=== PATIENT | female | born 1950 | race Caucasian/White ===

== ENCOUNTER 2020-10-02 02:57 | Inpatient (IN) ==
--- NOTE | 2020-10-02 02:44 | Emergency Department Note ---
History of Present Illness General Chief complaint: Heart Alert Stated complaint: CARDIAC/HEART ALERT Source: patient and EMS Mode of arrival: EMS History of Present Illness Provider complaint: Chest pain Onset (ago): hour(s) 2 Location: chest Radiation: neck and extremity Severity: severe Pain Consistency: + constant Maximum Pain Intensity: 10 Quality: + constant Associated symptoms: + diaphoresis and + shortness of breath This is a 70-year-old female who presents via EMS due to acute onset of chest pain at 00 30 this morning. 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 No prior similar episodes. Pain radiates into the left upper extremity and neck. No radiation into the back. Patient began to feel short of breath with this episode and was also nauseated. EMS reported initially patient was very hypertensive, pale and diaphoretic. Her initial room air sats were 82% however on a nonrebreather she came up into the mid 90s. Patient did not appear to have any increased work of breathing to them at that time. Patient did take 4 baby aspirin prior to their arrival. She was given a total of 2 doses of morphine prehospital. Patient denies any prior cardiac history. Does have history of diabetes, asthma, and hypertension. No prior history of tobacco abuse. No recent illness or fevers. No known exposure to coronavirus. Medical command given for patient prior to arrival in heart alert called by myself. EKG with ST elevation noted inferiorly as well as in V5 and V6 with reciprocal ST depression. Pt seen during a time of high acuity and national emergency pandemic while wearing PPE. Home Medications Medication Instructions Recorded Confirmed Type Lactobacillus acidophilus 10,000 mmu cells PO DAILY 10/02/20 10/02/20 History [Probiotic] albuterol sulfate [ProAir HFA] 2 puff INHALATION QID 10/02/20 10/02/20 History bupropion HCl [Wellbutrin XL] 450 mg PO QAM 10/02/20 10/02/20 History cholecalciferol (vitamin D3) 50 mcg PO DAILY 10/02/20 10/02/20 History [Vitamin D3] coenzyme Q10 [CoQ-10] 100 mg PO DAILY 10/02/20 10/02/20 History cyclobenzaprine [Flexeril] 10 mg PO .DAILY @ 1900 10/02/20 10/02/20 History diclofenac sodium [Voltaren] 150 mg PO DAILY 10/02/20 10/02/20 History dicyclomine [Bentyl] 20 mg PO QID PRN 10/02/20 10/02/20 History flunisolide 2 spray INTRANASAL DAILY 10/02/20 10/02/20 History gabapentin 100 mg PO .DAILY @ 1900 10/02/20 10/02/20 History hydrocodone-acetaminophen 1 tab PO Q4H PRN 10/02/20 10/02/20 History ipratropium-albuterol [DuoNeb] 3 ml INHALATION QID 10/02/20 10/02/20 History levocetirizine 5 mg PO PM 10/02/20 10/02/20 History levothyroxine See Rx Instructions .ROUTE .COMPLEX 10/02/20 10/02/20 History losartan 100 mg PO DAILY 10/02/20 10/02/20 History melatonin 5 mg PO HS PRN 10/02/20 10/02/20 History metformin 500 mg PO BID 10/02/20 10/02/20 History milk thistle 500 mg PO DAILY 10/02/20 10/02/20 History mometasone-formoterol [Dulera] 2 puff INHALATION BID 10/02/20 10/02/20 History montelukast [Singulair] 10 mg PO DAILY 10/02/20 10/02/20 History nystatin 1 applic TOPICAL TID PRN 10/02/20 10/02/20 History ondansetron HCl [Zofran] 4 - 8 mg PO TID PRN 10/02/20 10/02/20 History rosuvastatin [Crestor] 10 mg PO HS 10/02/20 10/02/20 History triamcinolone acetonide 1 applic TOPICAL TID PRN 10/02/20 10/02/20 History [Aristocort] vitamin B comp and C no.3 [B 1 cap PO DAILY 10/02/20 10/02/20 History Complex Plus Vitamin C] Allergies Allergy/AdvReac Type Severity Reaction Status Date / Time lactose Allergy Unknown diarrhea Verified 10/02/20 03:01 latex Allergy Unknown RASH Verified 10/02/20 03:01 propoxyphene Allergy Unknown DISORIENTED Verified 10/02/20 03:01 hydrochlorothiazide AdvReac Intermediate DIZZINESS Verified 10/02/20 03:01 triamterene AdvReac Intermediate DIZZINESS Verified 10/02/20 03:01 lisinopril AdvReac Unknown COUGH Verified 10/02/20 03:01 Past Med/Surg History Medical History (Updated 10/02/20 @ 06:39 by HETAL Parker) Asthma Diabetes mellitus Dyslipidemia Hypothyroidism Social History Smoking Status: Never smoker Second Hand Exposure: No; Do You Dip or Chew Tobacco: No; Hx Substance Use: Yes (Medical Marijuana for chronic pain) Preferred Language: Belizean Communication Ability: Effective Pulling Unit Operator Required: No Beliefs That Will Affect Care: None Current Living Situation: Alone Other Information That Helps Us Care for You: No Feels Safe at Home: Yes Safety Concerns: Feels Safe At This Time Assistive Devices: Cane and Glasses Review of Systems See HPI for pertinent positives & negatives. and A total of 10 systems reviewed and were otherwise negative Physical Exam Vital Signs Vital Signs - 24 hr 10/02/20 03:00 10/02/20 03:03 10/02/20 03:08 Temperature 36.9 C Temperature Source Oral Pulse Rate 108 H 111 H Pulse Rhythm Regular Pulse Strength Normal Respiratory Rate 34 H 30 H Respiratory Effort / Characteristics Spontaneous Labored Short of Breath Non-Labored Respiratory Depth Normal Normal Respiratory Pattern Tachypnea Blood Pressure 180/151 H 194/161 H Blood Pressure Mean 160 171 Pulse Oximetry 93 94 Oxygen Delivery Method BiPAP Fraction of Inspired Oxygen 100 Sepsis Recent Fever Within 48 Hours No Sepsis New/Unexplained Change in Mental Status N/A Sepsis Action Taken by Nursing No Action Required 10/02/20 03:14 Temperature Temperature Source Pulse Rate 116 H Pulse Rhythm Pulse Strength Respiratory Rate 22 Respiratory Effort / Characteristics Respiratory Depth Respiratory Pattern Blood Pressure 194/161 H Blood Pressure Mean Pulse Oximetry 98 Oxygen Delivery Method BiPAP Fraction of Inspired Oxygen Sepsis Recent Fever Within 48 Hours Sepsis New/Unexplained Change in Mental Status Sepsis Action Taken by Nursing GENERAL: alert, uncomfortable appearing, well nourished, mild distress, non- toxic, obese, audible rales EYE EXAM: normal conjunctiva, PERRL and EOM's grossly intact OROPHARYNX: no exudate, no erythema, lips, buccal mucosa, and tongue normal and mucous membranes are moist NECK: supple, no nuchal rigidity, no adenopathy, non-tender LUNGS: Normal chest wall mechanics, bilateral rales throughout, no wheezes, increased WOB HEART: no murmurs, S1 normal and S2 normal, sinus tachycardia on telemetry occasional PAC ABDOMEN: abdomen soft, non-tender, normo-active bowel sounds, no masses, no rebound or guarding. BACK: Back is symmetrical on inspection and there is no deformity, no midline tenderness, no CVA tenderness. SKIN: no rashes and no bruising UPPER EXTREMITIES: upper extremities are grossly normal. FROM, nml pulses b/l. LOWER EXTREMITIES: Trace bilateral pitting edema. FROM, nml pulses b/l. NEURO EXAM: Normal sensorium, cranial nerves II-XII grossly intact, normal speech, no gross weakness of arms, no gross weakness of legs. Gross sensation intact. Course Course 0303: Pt placed on BiPAP by RT after her sats dropped to 78% on room air during the transition from EMS to ER stretcher. 0305: Dr. Roman at bedside. Brilinta given and nitro drip being started. 0313: Pt appears improved on Bipap. Improved sats and decreased WOB. Administered Medications Magnesium Sulfate/Dextrose (Magnesium Sulfate / D5w) 1 gm in 100 mls @ 50 mls/hr IV ONE ONE Stop: 10/02/20 07:36 Last Admin: 10/02/20 06:33 Dose: 50 mls/hr Documented by: [id number] Nitroglycerin/Dextrose (Nitroglycerin/D5w 100 Mcg/Ml) 250 mls @ 3 mls/hr IV .Q24H [facility]; Protocol Stop: 11/01/20 06:14 Last Admin: 10/02/20 06:37 Dose: 10 mcg/min, 6 mls/hr Documented by: [id number] Cosigned by: [id number] Insulin Aspart (Insulin Aspart 100 Units/Ml 3 Ml Pen) 0 units SC ACHS [facility] Stop: 11/01/20 06:29 Last Admin: 10/02/20 06:34 Dose: 3 units Documented by: [id number] Cosigned by: [id number] Levothyroxine Sodium (Levothyroxine Sodium 50 Mcg Tablet) 50 mcg PO SuWe@[id number] [facility] Stop: 11/01/20 06:29 Last Admin: 10/02/20 06:36 Dose: 50 mcg Documented by: [id number] Discontinued Medications Fentanyl Citrate (Fentanyl Citrate 100 Mcg/2 Ml Vial) Confirm Administered Dose 100 mcg .ROUTE .STK-MED ONE Stop: 10/02/20 02:56 Last Increment: 10/02/20 04:22 Dose: 50 mcg Documented by: [id number] Furosemide (Furosemide 40 Mg/4 Ml Vial) Confirm Administered Dose 40 mg IV .STK- MED ONE Stop: 10/02/20 04:27 Last Admin: 10/02/20 05:49 Dose: Not Given Documented by: [id number] Heparin Sodium (Porcine) (Heparin (Porcine) 1000 Unit/Ml 10 Ml (Car Repair Supervisor Use Only)) Confirm Administered Dose 10,000 units .ROUTE .STK-MED ONE Stop: 10/02/20 02:56 Last Admin: 10/02/20 04:21 Dose: 18,000 units Documented by: [id number] Heparin Sodium/Sodium Chloride (Heparin In Nss Infusion 1000 Unit/500 Ml (2 U/Ml) Bag) Confirm Administered Dose 3,000 units IV .STK-MED ONE Stop: 10/02/20 02:57 Last Admin: 10/02/20 04:16 Dose: 3,000 units Documented by: [id number] Nitroglycerin/Dextrose (Nitroglycerin/D5w 100 Mcg/Ml) 250 mls @ 3 mls/hr IV .Q24H [facility] Stop: 11/01/20 03:29 Last Admin: 10/02/20 04:17 Dose: 5 mcg/min, 3 mls/hr Documented by: [id number] Cosigned by: [id number] Midazolam HCl (Midazolam Hcl 1 Mg/Ml 2ml Vial) Confirm Administered Dose 2 mg .ROUTE .STK-MED ONE Stop: 10/02/20 02:56 Last Admin: 10/02/20 04:16 Dose: 2 mg Documented by: [id number] Miscellaneous (Stat Iv Infusion Titration Per Protocol) 1 ea N/A NOW STA Stop: 10/02/20 03:24 Last Admin: 10/02/20 05:53 Dose: Not Given Documented by: [id number] Nicardipine HCl (Nicardipine Hcl Inj 2.5 Mg/Ml 10 Ml Amp) Confirm Administered Dose 25 mg .ROUTE .STK-MED ONE Stop: 10/02/20 02:56 Last Admin: 10/02/20 04:16 Dose: 25 mg Documented by: [id number] Nitroglycerin/Dextrose (Nitroglycerin/D5w 100 Mcg/Ml Btl) Confirm Administered Dose 25 mg .ROUTE .STK-MED ONE Stop: 10/02/20 02:56 Last Admin: 10/02/20 03:12 Dose: 20 mcg Documented by: [id number] Cosigned by: [id number] Nitroglycerin/Dextrose (Nitroglycerin/D5w 100mcg/Ml 20ml Syr) Confirm Administered Dose 2,000 mcg .ROUTE .STK-MED ONE Stop: 10/02/20 02:57 Last Admin: 10/02/20 04:17 Dose: 2,000 mcg Documented by: [id number] Ticagrelor (Ticagrelor 90 Mg Tab) 180 mg PO ONE ONE Stop: 10/02/20 02:50 Last Admin: 10/02/20 03:05 Dose: 180 mg Documented by: [id number] Medical Decision Making Differential Diagnosis Differential diagnoses includes but is not limited to acute coronary syndrome, myocardial infarction, pericarditis, pulmonary embolus, aortic dissection, pneumonia, pneumothorax, musculoskeletal, shingles, esophageal. Medical Records Attestation: I reviewed the patient's medical records. Home Medications Current Medication List: was personally reviewed by me Laboratory Data Attestation: I reviewed the patient's lab results. Result diagrams: 10/02/20 03:03 10/02/20 03:03 Lab Results 10/02/20 10/02/20 10/02/20 Range/Units 03:03 03:03 03:03 WBC 16.59 H (4.8-10.8) K/uL RBC 5.55 H (4.2-5.4) M/uL Hgb 15.6 (12.0-16.0) g/dL Hct 48.0 H (37-47) % MCV 86.5 (80-100) fL MCH 28.1 (25-34) pg MCHC 32.5 (32-36) g/dL RDW Std Deviation 44.4 (36.4-46.3) fL RDW Coeff of Ade 14.1 (11.5-14.5) % Plt Count 297 (130-400) K/uL MPV 11.3 H (7.4-10.4) fL Immature Gran % (Auto) 0.4 % Neut % (Auto) 72.0 % Lymph % (Auto) 22.7 % Bee % (Auto) 3.7 % Eos % (Auto) 1.0 % Baso % (Auto) 0.2 % Neut # (Auto) 11.95 H (1.4-6.5) K/uL Lymph # (Auto) 3.76 H (1.2-3.4) K/uL Bee # (Auto) 0.62 H (0.11-0.59) K/uL Eos # (Auto) 0.16 (0-0.5) K/uL Baso # (Auto) 0.04 (0-0.2) K/uL Immature Gran # (Auto) 0.06 H (0.00-0.02) K/uL PT 11.1 (9.0-12.0) Seconds INR 1.1 (0.9-1.1) APTT 20.9 L (21.0-31.0) Seconds PTT Ratio 0.7 Activ Coag Time Kaolin (94-140) SECONDS Sodium 140 (136-145) mmol/L Potassium 4.0 (3.5-5.1) mmol/L Chloride 112 H (98-107) mmol/L Carbon Dioxide 22 (21-32) mmol/L Anion Gap 6.0 (3-11) BUN 17 (7-18) mg/dl Creatinine 1.29 H (0.6-1.2) mg/dl Est Cr Clr Drug Dosing 53.8 ml/min Est GFR ( Amer) 48.9 Est GFR (Non-Af Amer) 42.2 BUN/Creatinine Ratio 13.0 (10-20) Glucose 267 H (70-99) mg/dl Calcium 8.5 (8.5-10.1) mg/dl Magnesium 1.8 (1.8-2.4) mg/dl Total Bilirubin 0.3 (0.2-1) mg/dl AST 30 (15-37) U/L ALT 30 (12-78) U/L Alkaline Phosphatase 85 (45-117) U/L Total Creatine Kinase 204 H (26-192) U/L CK-MB (CK-2) 19.3 H (0.5-3.6) ng/ml CK/CKMB % Calc 9.5 H (0-3.0) Troponin I 0.848 H* (0-0.045) ng/ml NT-Pro-B Natriuret Pep 468 (0-900) pg/ml Total Protein 6.8 (6.4-8.2) gm/dl Albumin 3.3 L (3.4-5.0) gm/dl Globulin 3.5 (2.5-4.0) gm/dl Albumin/Globulin Ratio 0.9 (0.9-2) Triglycerides 295 H (0-150) mg/dl Cholesterol 217 H (0-200) mg/dl LDL Cholesterol, Calc 108 mg/dl VLDL Cholesterol, Calc 59 mg/dl HDL Cholesterol 50 mg/dl Cholesterol/HDL Ratio 4 Lipase 100 (73-393) U/L TSH 2.940 (0.300-4.500) uIu/ml 10/02/20 10/02/20 Range/Units 03:49 04:06 WBC (4.8-10.8) K/uL RBC (4.2-5.4) M/uL Hgb (12.0-16.0) g/dL Hct (37-47) % MCV (80-100) fL MCH (25-34) pg MCHC (32-36) g/dL RDW Std Deviation (36.4-46.3) fL RDW Coeff of Ade (11.5-14.5) % Plt Count (130-400) K/uL MPV (7.4-10.4) fL Immature Gran % (Auto) % Neut % (Auto) % Lymph % (Auto) % Bee % (Auto) % Eos % (Auto) % Baso % (Auto) % Neut # (Auto) (1.4-6.5) K/uL Lymph # (Auto) (1.2-3.4) K/uL Bee # (Auto) (0.11-0.59) K/uL Eos # (Auto) (0-0.5) K/uL Baso # (Auto) (0-0.2) K/uL Immature Gran # (Auto) (0.00-0.02) K/uL PT (9.0-12.0) Seconds INR (0.9-1.1) APTT (21.0-31.0) Seconds PTT Ratio Activ Coag Time Kaolin 219 H 230 H (94-140) SECONDS Sodium (136-145) mmol/L Potassium (3.5-5.1) mmol/L Chloride (98-107) mmol/L Carbon Dioxide (21-32) mmol/L Anion Gap (3-11) BUN (7-18) mg/dl Creatinine (0.6-1.2) mg/dl Est Cr Clr Drug Dosing ml/min Est GFR ( Amer) Est GFR (Non-Af Amer) BUN/Creatinine Ratio (10-20) Glucose (70-99) mg/dl Calcium (8.5-10.1) mg/dl Magnesium (1.8-2.4) mg/dl Total Bilirubin (0.2-1) mg/dl AST (15-37) U/L ALT (12-78) U/L Alkaline Phosphatase (45-117) U/L Total Creatine Kinase (26-192) U/L CK-MB (CK-2) (0.5-3.6) ng/ml CK/CKMB % Calc (0-3.0) Troponin I (0-0.045) ng/ml NT-Pro-B Natriuret Pep (0-900) pg/ml Total Protein (6.4-8.2) gm/dl Albumin (3.4-5.0) gm/dl Globulin (2.5-4.0) gm/dl Albumin/Globulin Ratio (0.9-2) Triglycerides (0-150) mg/dl Cholesterol (0-200) mg/dl LDL Cholesterol, Calc mg/dl VLDL Cholesterol, Calc mg/dl HDL Cholesterol mg/dl Cholesterol/HDL Ratio Lipase (73-393) U/L TSH (0.300-4.500) uIu/ml ECG Data Attestation: I personally reviewed and interpreted this ECG as follows: Indication: + chest pain Rate (beats per minute): 111 Rhythm: + sinus tachycardia ECG Intervals/blocks: + Normal QRS and + Normal QT ECG ST segments: + ST depression (V1-3) and + ST elevation (II, III, aVF, V5, V6) ECG Findings: + PVCs Change: the following changes noted (no prior ST changes noted) Blood Pressure Blood Pressure Findings: Normal blood pressure MDM Narrative Patient brought in due to chest pain and concerning EKG changes from prehospital. Patient was made a heart alert on command call from EMS. Patient brought into room B1, labs started, EKG performed, and due to increased work of breathing as well as audible bilateral rails, patient started on BiPAP due to concern for evolving congestive heart failure. VS otw stable. Pt improved on bipap. Nitro drip started, brilinta given and Dr. Roman came to bedside. Pt taken to slab tripper. An order was placed for continuous cardiac monitoring. The monitor shows a rate of _107_ with _sinus tachy_ rhythm. Impression & Plan Chest pain, Acute dyspnea, ST elevation (STEMI) myocardial infarction, CHF (congestive heart failure) Discharge Plan Visit Data Chief Complaint: Heart Alert Stated Complaint: CARDIAC/HEART ALERT ED Provider: Ying Tabor Discharge Problem: Chest pain, Acute dyspnea, ST elevation (STEMI) myocardial infarction, CHF (congestive heart failure) Patient Disposition: Admitted As Inpatient Discharge Instructions Interventions: ED Discharge Assessment Last Done: 10/02/20 03:14 Discharge Problem: Chest pain Qualifiers: Chest pain type: chest pain due to myocardial ischemia Ischemic chest pain type: unspecified angina pectoris type Qualified Code(s): I25.9 - Chronic ischemic heart disease, unspecified ST elevation (STEMI) myocardial infarction Qualifiers: Involved coronary artery: unspecified coronary artery Qualified Code(s): I21.3 - ST elevation (STEMI) myocardial infarction of unspecified site CHF (congestive heart failure) Qualifiers: Heart failure type: unspecified Heart failure chronicity: unspecified Qualified Code(s): I50.9 - Heart failure, unspecified
[~2020-10-02 02:57] MED LIST: HEPARIN (PORCINE) 1000 UNIT/ML 10 ML (CATH LAB USE ONLY) ONE; MIDAZOLAM HCL 1 MG/ML 2ML VIAL ONE; NITROGLYCERIN/D5W 100 MCG/ML BTL ONE; NITROGLYCERIN/D5W 100MCG/ML 20ML SYR ONE; TICAGRELOR 90 MG TAB PO ONE; fentaNYL citrate 100 MCG/2 ML VIAL ONE; niCARdipine HCL INJ 2.5 MG/ML 10 ML AMP ONE
[2020-10-02] MEDS ORDERED: ONDANSETRON INJ 2 MG/ML 2 ML VIAL ONE (03:13)
[2020-10-02] MEDS ORDERED: MoRPHine SULFATE 10 MG/ML CARP/VIAL ONE (03:14)
--- NOTE | 2020-10-02 03:21 | Pre Anesthesia Assessment ---
Date of Service October 02, 2020 Pre Sedation Assessment Vital Signs Temp Pulse Resp BP Pulse Ox 10/02/20 03:14 116 H 22 194/161 H 98 10/02/20 03:03 98.4 F 111 H 30 H 180/151 H 94 Cardiovascular + regular rate Respiratory + respiratory distress and + labored breathing Pre-Sedation Airway Assessment Smoking Status: Never smoker Hx Sleep Apnea: No Hx Difficult Intubation: No Short, Thick Neck: Yes Thyromental Distance: < 3.5 Finger Breadths Oral Cavity: + Dental Abnormalities Mallampati Class: III ASA: ASA4 Procedure Planning Contraindications for Sedation: none Current Medications Reviewed: Yes Notes The planned sedation has been discussed with the patient. Informed Consent was obtained. I have identified the patient, determined the appropriateness of s edation and have assessed the patient immediately prior to the procedure. All medicine(s) and interventions are by my order.
[2020-10-02 03:23] LABS: Basophils # (auto) 0.04 K/uL (0-0.2); Basophils % (auto) 0.2 %; Eosinophils # (auto) 0.16 K/uL (0-0.5); Hemoglobin 15.6 g/dL (12.0-16.0); Immature Granulocytes # (auto) 0.06 K/uL (0.00-0.02); Immature Granulocytes % (auto) 0.4 %; Lymphocytes # (auto) 3.76 K/uL (1.2-3.4); Lymphocytes % (auto) 22.7 %; Mean Corpuscular Hemoglobin 28.1 pg (25-34); Mean Corpuscular Hgb Conc 32.5 g/dL (32-36); Mean Corpuscular Volume 86.5 fL (80-100); Mean Platelet Volume 11.3 fL (7.4-10.4); Monocytes # (auto) 0.62 K/uL (0.11-0.59); Monocytes % (auto) 3.7 %; Neutrophils # (auto) 11.95 K/uL (1.4-6.5); Platelet Count 297 K/uL (130-400); RDW Coefficient of Variation 14.1 % (11.5-14.5); RDW Standard Deviation 44.4 fL (36.4-46.3); Red Blood Count 5.55 M/uL (4.2-5.4); White Blood Count 16.59 K/uL (4.8-10.8)
[2020-10-02] MEDS ORDERED: STAT IV Infusion **Titration per Protocol STA ×2 (03:23→06:06)
--- NOTE | 2020-10-02 03:24 | Cardiology Consultation ---
Date of Consultation October 02, 2020 Assessment & Plan (1) ST elevation (STEMI) myocardial infarction: Presentation consistent with inferior STEMI and recommend proceeding with emergent cardiac catheterization and likely primary PCI. No apparent contraindications to procedure. Discussed risks, benefits, alternatives of procedure with patient and they are willing to proceed. Given ticagrelor 180 mg in the ED. Further recommendations pending findings of coronary angiography. History of Present Illness History of Present Illness 70-year-old woman here with acute chest pain and ECG concerning for acute PR. Patient seen emergently in the ED after heart alert activated in route. No prior cardiac history. Cardiac risk factors include type 2 diabetes, obesity, dyslipidemia. Other medical issues include hypothyroidism, asthma, osteoarthritis. Chest pain began approximately 1 hour prior to arrival. Describes chest pain radiating up into her neck and shoulders with associated nausea, dyspnea. Reports chest/shoulder pain during the preceding day. Ongoing chest pain at time of arrival, hypoxic requiring initiation of BiPAP. Hypertensive and started on nitro infusion. ECG in route showed inferior ST elevations with ST depressions in V1, V2. Allergies Allergy/AdvReac Type Severity Reaction Status Date / Time lactose Allergy Unknown diarrhea Verified 10/02/20 03:01 latex Allergy Unknown RASH Verified 10/02/20 03:01 propoxyphene Allergy Unknown DISORIENTED Verified 10/02/20 03:01 hydrochlorothiazide AdvReac Intermediate DIZZINESS Verified 10/02/20 03:01 triamterene AdvReac Intermediate DIZZINESS Verified 10/02/20 03:01 lisinopril AdvReac Unknown COUGH Verified 10/02/20 03:01 Home Medications Medication Instructions Recorded Confirmed Type Lactobacillus acidophilus 10,000 mmu cells PO DAILY 10/02/20 10/02/20 History [Probiotic] albuterol sulfate [ProAir HFA] 2 puff INHALATION QID 10/02/20 10/02/20 History bupropion HCl [Wellbutrin XL] 450 mg PO QAM 10/02/20 10/02/20 History cholecalciferol (vitamin D3) 50 mcg PO DAILY 10/02/20 10/02/20 History [Vitamin D3] coenzyme Q10 [CoQ-10] 100 mg PO DAILY 10/02/20 10/02/20 History cyclobenzaprine [Flexeril] 10 mg PO .DAILY @ 1900 10/02/20 10/02/20 History diclofenac sodium [Voltaren] 150 mg PO DAILY 10/02/20 10/02/20 History dicyclomine [Bentyl] 20 mg PO QID PRN 10/02/20 10/02/20 History flunisolide 2 spray INTRANASAL DAILY 10/02/20 10/02/20 History gabapentin 100 mg PO .DAILY @ 1900 10/02/20 10/02/20 History hydrocodone-acetaminophen 1 tab PO Q4H PRN 10/02/20 10/02/20 History ipratropium-albuterol [DuoNeb] 3 ml INHALATION QID 10/02/20 10/02/20 History levocetirizine 5 mg PO PM 10/02/20 10/02/20 History levothyroxine See Rx Instructions .ROUTE .COMPLEX 10/02/20 10/02/20 History losartan 100 mg PO DAILY 10/02/20 10/02/20 History melatonin 5 mg PO HS PRN 10/02/20 10/02/20 History metformin 500 mg PO BID 10/02/20 10/02/20 History milk thistle 500 mg PO DAILY 10/02/20 10/02/20 History mometasone-formoterol [Dulera] 2 puff INHALATION BID 10/02/20 10/02/20 History montelukast [Singulair] 10 mg PO DAILY 10/02/20 10/02/20 History nystatin 1 applic TOPICAL TID PRN 10/02/20 10/02/20 History ondansetron HCl [Zofran] 4 - 8 mg PO TID PRN 10/02/20 10/02/20 History rosuvastatin [Crestor] 10 mg PO HS 10/02/20 10/02/20 History triamcinolone acetonide 1 applic TOPICAL TID PRN 10/02/20 10/02/20 History [Aristocort] vitamin B comp and C no.3 [B 1 cap PO DAILY 10/02/20 10/02/20 History Complex Plus Vitamin C] Patient History Social History Smoking Status: Never smoker Review of Systems Review of Systems: Not completed in the setting of emergent situation Physical Exam Physical Exam: General: Dyspneic HEENT: Sclerae anicteric, BiPAP in place Lungs: Coarse breath sounds throughout Cardiac: Distant heart sounds, tachycardic, regular Abdomen: Soft, nontender Extremities: Warm, well perfused, no edema. 2+ radial pulses Skin: No rashes or lesions. Neuro: Nonfocal Psych: Alert orient x3 Results & Data ([facility]) Vital Signs (Past 12 Hours) Vital Signs Temp Pulse Resp BP Pulse Ox 10/02/20 03:14 116 H 22 194/161 H 98 10/02/20 03:03 98.4 F 111 H 30 H 180/151 H 94 PG Care Time/CCT Total # of Minutes Spent Total Time Spent with Patient: Total time spent is greater than 50% in coordination of care (as documented) at patient's floor/unit and/or counseling patient: Coding Level of Care Code 00509 Inpt Consult Level [address] elevation (STEMI) myocardial infarction I21.3 Involved coronary artery: unspecified coronary artery (1) ST elevation (STEMI) myocardial infarction Involved coronary artery: unspecified coronary artery Qualified Code(s): I21.3 - ST elevation (STEMI) myocardial infarction of unspecified site
[2020-10-02] MEDS ORDERED: NITROGLYCERIN/D5W 100MCG/ML 250 ML IV SCH (03:30)
[2020-10-02 03:33] LABS: INR 1.1 (0.9-1.1); Partial Thromboplastin Ratio 0.7; Partial Thromboplastin Time 20.9 Seconds (21.0-31.0); Prothrombin Time 11.1 Seconds (9.0-12.0)
[2020-10-02 03:46] LABS: Albumin Level 3.3 gm/dl (3.4-5.0); Calcium 8.5 mg/dl (8.5-10.1); Creatinine Clr Calc Pharmacy 53.8 ml/min; Est GFR (African American) 48.9; Est GFR (Non-African American) 42.2; Magnesium 1.8 mg/dl (1.8-2.4)
[2020-10-02 04:00] LABS: Albumin Globulin Ratio 0.9 (0.9-2); Bilirubin,Total 0.3 mg/dl (0.2-1); Creatine Kinase MB 19.3 ng/ml (0.5-3.6); Globulin 3.5 gm/dl (2.5-4.0); Thyroid Stimulating Hormone 2.94 uIu/ml (0.300-4.500); Total Protein 6.8 gm/dl (6.4-8.2); Troponin I 0.848 ng/ml (0-0.045)
[2020-10-02] MEDS ORDERED: FUROSEMIDE 40 MG/4 ML VIAL IV ONE (04:26)
[2020-10-02] MEDS ORDERED: ACETAMINOPHEN 325 MG TAB PO PRN (04:35)
[2020-10-02] MEDS ORDERED: ICU PROTOCOL FOR HYPERGLYCEMIA PRN (04:35)
[2020-10-02] MEDS ORDERED: ONDANSETRON INJ 2 MG/ML 2 ML VIAL IV PRN (04:35)
[2020-10-02] MEDS ORDERED: NITROGLYCERIN SL 0.4 MG/TAB TAB SL PRN (04:35)
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
--- NOTE | 2020-10-02 05:04 | Cardiac Catheterization ---
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 Cardiac Status Clinical evaluation leading to the procedure CAD Presenation: STEMI Anginal Classification: CCS IV Heart Failure: No Cardiogenic Shock within 24 Hours: No Imaging Studies Past 6 Months: No Stress Studies Past 6 Months: No Diagnostic Physicians Name: Luis Roman MD Status: Emergency Closure Device Percutaneous Entry Location: Radial Closure Device: Radial Band Recommendations: PCI without planned CABG PCI Indication: Immediate PCI for STEMI First Noted: First EKG Lesion Segment Name: proximal circumflex Culprit Artery: Yes Stenosis Prior to Rx (%): 99 Chronic Total Occlusion: No IVUS: No FFR: No Pre-Procedure CONNIE Flow: 2 Previously Treated Lesion: No Lesion Complexity: Non-High/Non-C Lesion Length (mm): 12 Thrombus Present: Yes Bifurcation Lesion: No Guidewire Across Lesion: Stenosis Post-Procedure (%): 0 Post-Procedure CONNIE Flow: 3 Devices(s) Deployed: Yes Yes Lesion #2 Segment Name: proximal OM3 Culprit Artery: Yes Stenosis Prior to Rx (%): 100 Chronic Total Occlusion: No IVUS: No FFR: No Pre-Procedure CONNIE Flow: 0 Previously Treated Lesion: No Lesion Complexity: Non-High/Non-C Lesion Length (mm): 12 Thrombus Present: Yes Bifurcation Lesion: No Guidewire Across Lesion: Yes Stenosis Post-Procedure (%): 0 Post-Procedure CONNIE Flow: 3 Devices(s) Deployed: No Intraprocedure Events Significant Disection: No Perforation: No Cardiac Cath Procedure Full Procedure Date October 02, 2020 Pre-Procedure Diagnosis Pre-Procedure Diagnosis: STEMI AUC Score AUC Score: 9 Post-Procedure Diagnosis Post-Procedure Diagnosis: Severe CAD, Successful PCI and Elevated Intracardiac Pressures Procedure(s) Performed Procedure(s) Performed: Coronary Angiography, Left Heart Cath, Drug Eluting Stent and Ultrasound Guided Vascular Access Vibration Engineer Luis Roman MD Picu Nurse(s) Briana Estimated Blood Loss Estimated Blood Loss: 15 Medication(s) Medication(s): Fentanyl, Heparin, Lidocaine 1%, Nicardipine, Nitroglycerin and Versed Medication(s): Ticagrelor Summary of Findings Indication: STEMI/Heart Alert Access: 6 Fr right radial artery under ultrasound guidance Catheters: Ikari left 3.5 guide, pigtail Findings: LM -Short, normal caliber, luminal irregularities LAD -small caliber vessel, 40% proximal, mid and distal segment luminal irregularities. Distal vessel tapers prior to apex. Small first diagonal without significant disease. Circumflex -large caliber vessel, 99% acute thrombotic proximal stenosis, mid segment luminal irregularities. 40% ostial OM 2. Acute thrombus in proximal artery with 100% occlusion. Distal AV groove circumflex into left PLB with 60% ostial stenosis after takeoff of OM 3. RCA -dominant, medium caliber, 80% proximal focal stenosis, mid and distal segment luminal irregularities. Small PDA without significant disease. LVEDP -22 -- PCI -- Antithrombotic therapy: Heparin, ticagrelor Procedure: Left main cannulated with IKari left 3.5 guide Load Dispatcher 50 wire passed across lesion into distal OM 3 Proximal circumflex lesion predilated with 2.5 compliant balloon Dilated lesion stented with 3.5 x 15 mm [place] drug-eluting stent Stent post-dilated with 4.0 noncompliant balloon IC vasodilators administered for spasm Flow reestablished in OM 3 after multiple balloon inflations with 2.0 and 2.5 balloons Post procedure CONNIE 3 flow throughout circumflex system, stent well expanded with minimal residual stenosis and no apparent cardiac complications. RCA then cannulated with Ikari left 3.5 guide In the setting of persistent inferior ST elevations proximal RCA lesion direct stented with 2.75 x 12 mm Xience Alix drug-eluting stent Stent postdilated with 3.0 NC balloon Post procedure CONNIE 3 flow, stent well expanded with minimal residual stenosis and no apparent cardiac complications. Arterial Closure: TR band Summary: 1. Inferolateral STEMI 2. 99% acute proximal circumflex stenosis. Acute thrombus with 100% proximal OM 3 occlusion 3. Severe single-vessel non-culprit coronary artery disease -80% proximal RCA 4. Elevated intracardiac filling pressure 5. Successful PCI of proximal circumflex with single drug-eluting stent (3.5 x 15 mm [place]; postdilated with 4.0 NC). 6. Successful PTCA of 100% occluded proximal OM 3 7. Successful PCI of proximal RCA with single drug-eluting stent (2.75 x 12 mm Xience; postdilated with 3.0 NC). Recommendations: Admit to ICU for continued monitoring Loaded with ticagrelor 180 mg in emergency department Given 40 of IV Lasix at completion of procedure Continue dual-antiplatelet therapy for at least 1 year. Trend troponins until peak, Check Echo Uptitrate beta-rosibel/ARB as BP allows High-dose statin Consult cardiac Rehab Hemodynamics Rest Ao:: 169/106/141 Final Ao: 138/82/25 LV: 126/22 Recommendations Recommendations: PCI without planned CABG Specimens Specimens: None Radiation Exposure (mGy) 4581 Contrast (mls) 150 Fluids (cc crystalloids) Fluids (cc crystalloids): 100 Drains Drains: none Anesthesia moderate Procedural Complication(s) None Disposition ICU I attest to the content of the Intraoperative Record and any orders documented therein. Any exceptions are noted below. EnsequenceG Card Cath Procedure Codes Cardiac Catheterization Procedure 1: Cardiovascular Cath Procedures: 11596 Coronaries and LHC (+/-LV) Therapeutic Services & Ancillary Proc Procedure 1: Cardiovascular Tx and Anc Procedures: 57281 Ultrasonic Guidance Vascular Access Moderate Sedation Procedure 1: Sedation/Anesthesia: 05346 Mod Sedation by the same physician;Init15 Min Child Age 5 & Up Procedure 2: Sedation/Anesthesia: 99191 Mod Sedation by the same physician; Ea [id number] Minutes Stenting Procedure 1: Cardiovascular Stent Procedures: 84726 Perc transluminal revascularization of acute sub/total occl, aMI Procedure 2: Cardiovascular Stent Procedures: 77564 Ea addl branch of a major coronary artery PG Care Time/CCT Total # of Minutes Spent Total Time Spent with Patient: Total time spent is greater than 50% in coordination of care (as documented) at patient's floor/unit and/or counseling patient:
[2020-10-02] MEDS ORDERED: GLUCOSE 40% GEL 15 GM TUBE PO PRN (05:37)
[2020-10-02] MEDS ORDERED: MAGNESIUM SULFATE / D5W 1 GM/100 ML BAG IV ONE (05:37)
[2020-10-02] MEDS ORDERED: GLUCAGON FOR INJ 1 MG VIAL SQ PRN (05:37)
[2020-10-02] MEDS ORDERED: DEXTROSE 50% 50 ML SYRINGE IV PRN (05:37)
[2020-10-02] MEDS ORDERED: CARBOHYDRATES FOR HYPOGLYCEMIA PO PRN (05:37)
[2020-10-02] MEDS ORDERED: HYDROCODONE/ACETAMOPHEN 5/325MG TAB PO PRN ×2 (05:37→12:45)
[2020-10-02] MEDS ORDERED: LEVOTHYROXINE SODIUM 25 MCG TABLET PO SCH (05:37)
[2020-10-02] MEDS ORDERED: MoRPHine SULFATE 4 MG/ML 1 ML CARP\\VIAL IV PRN (05:37)
[2020-10-02] MEDS ORDERED: GLUCOSE 10 TABS/TUBE PO PRN (05:37)
[2020-10-02] MEDS ORDERED: PROMETHAZINE HCL 12.5 MG in SODIUM CHLORIDE 0.9% 50 ML IV PRN (05:37)
--- NOTE | 2020-10-02 06:08 | Critical Care Consultation ---
Date of Consultation October 02, 2020 Assessment & Plan (1) ST elevation (STEMI) myocardial infarction: Impression: 70-year-old female with inferior lateral STEMI presents to the ICU post cath with successful PCI of proximal circumflex with KINGS x1, PTCA of 100% occluded proximal OM 3, and PCI of proximal RCA with KINGS x1. Currently requiring BiPAP and nitro drip. Neuro - [facility] ICU: Negative Cardiac - STEMIST elevation inferior leads with ST depression in V1 and V2, initial troponin 0.848 -Received bolus of Brilinta and heparin in the ED -Status post PCI proximal circumflex x1, PTCA proximal OM 3, and PCI of proximal RCA -Trend troponin for peak -We will follow up echo -Weaning nitro drip, as patient initially was hypertensive and with CHF-like presentation on arrival, placed on BiPAP and undergoing diuresis -We will follow cardiology recommendation -Continue dual antiplatelet therapy, statin, BB, ARB -Follow-up hemoglobin A1c and lipid panel -Maximize electrolyte -Continuous monitoring on telemetry Respiratory - Acute hypoxic respiratory failurepatient presented initially with dyspnea and hypoxia, likely resembles acute CHF exacerbation in the setting of ACS -Chest x-ray consistent with diffuse acute pulmonary congestion consistent with heart failure -Patient does have history of asthma, no history of smoking, no wheezing on exam -DuoNeb as needed -Patient given 40 Lasix IV in the [facility] with good response and we are currently weaning BiPAP FiO2 -Continuous monitoring pulse ox -We will continue diuresis as needed -We will continue with daily weights and strict I's and O's GI - Advanced to heart healthy diet once wean from BiPAP, will remain n.p.o. for the time being RENAL/LYTES - AKImild elevation of creatinine of 1.3 with prior baseline of 1 -Suspect this is likely prerenal in the event of acute OR -Careful with IV fluid resuscitation as patient is currently being diuresed for acute CHF exacerbation -Continue to trend BMP, maintain maps greater than 65, avoid nephrotoxins, renally adjust medications Maximize electrolytes for potassium greater than 4 and magnesium greater than 2 - Foleystrict I's and O's ENDO - DM type IIhemoglobin A1c pending -Hold Metformin and transition to sliding scale -ICU hyperglycemic protocol HypothyroidismTSH within normal limits, continue Synthroid HEME - H&H stable, monitor routine CBCs ID - No indication for infectious process at this time LINES/IV ACCESS - Peripheral IVs DVT PROPHYLAXIS - SCDs, Lovenox I have personally spent 33 minutes of critical care time in the direct management of this patient. This is a life/limb threatening event. This includes time spent evaluating patient, direct bedside care, chart review, placing orders, interpretation of diagnostic studies, discussion with consultants, patient, and family members, as well as other required patient management activities. This time is exclusive of all separately billable procedures, and teaching time and separate from and in addition to any other critical care service time. Thank you for allowing us to participate in the care of this patient. Please refer to my attending physician's documentation for any further recommendations. (2) Chest pain: (3) CHF (congestive heart failure): (4) Arthritis of knee, left: (5) Acute dyspnea: (6) Acute hypoxemic respiratory failure: (7) Diabetes mellitus: (8) Hypothyroidism: (9) Dyslipidemia: (10) Asthma: Supervising Physician Co-Signing Physician Notes I saw and evaluated the patient with Betito Suarez, and agree with findings and plan as documented in the note. Patient seen and examined at bedside. No acute distress. Patient came in for STEMI Status post PCI proximal circumflex x1, PTCA proximal OM 3, and PCI of proximal RCA Patient is off nitroglycerin drip. She was given 40 of Lasix she has made good amount of urine. On BiPAP at the time of examination 15/5 saturating 95%. I went down on IPAP to 12. Patient denies any chest pain, no nausea, no vomiting, no headache, no blurry vision, no palpitation, no diaphoresis. No fever or chills prior to coming to the hospital. Continue with take albuterol, aspirin, statin, losartan and beta-rosibel. We will give 1 more dose of Lasix depending on the urine output. Try to gradually wean the patient off BiPAP. Please note the above document was generated using voice recognition software. It may contain grammatical, syntax or spelling errors.Any formal questions or concerns about the content, text or information contained within the body of this dictation should be directly addressed to the provider for clarification. History of Present Illness Attending Physician: Carolyn Camarillo DO History of Present Illness Patient is a 70-year-old female with PMH of DM type II, asthma, HLD, hypothyroid, asthma who presents to the emergency department as a heart alert with chest pain with radiation to neck and shoulder and associated nausea and dyspnea that started 1 hour prior to arrival to the emergency department and ECG in route concerning for acute OR. She was hypoxic and hypertensive on arrival to the emergency department and was started on BiPAP and nitro drip. EKG revealed inferior ST elevation and ST depression in septal leads. She was loaded with Brilinta and heparin and taken emergently to the [facility] where she received successful PCI of proximal circumflex with KINGS x1 and PTCA of proximal OM 3, and successful PCI of proximal RCA with a single KINGS. She was also found to have elevated intracardiac filling pressures and was given 40 IV Lasix. 2 of Versed and 50 of fentanyl administered in procedure. On arrival to the ICU patient is alert and oriented. She complains of continued chest pressure which she rates 3 out of 10 which is been ongoing but improved from earlier. She denies continued radiation to the shoulder and neck. She denies current nausea or syncope/dizziness. She denies recent illness, fevers, sore throat or contact with anyone ill. She denies palpitations and does not currently feel short of breath while on BiPAP. She does report bilateral lower extremity swelling which has been ongoing for some time, and she wears compression stockings at home but does not take a diuretic. We are currently weaning FiO2 with BiPAP and she seems to be responding well to Lasix. She continues to have ST elevation in inferior leads and ST depression and V1 V2 post cath but does appear improved from initial study. Chest x-ray consistent with acute CHF exacerbation with diffuse pulmonary congestion. Will manage in ICU for the time being. Allergies Allergy/AdvReac Type Severity Reaction Status Date / Time lactose Allergy Unknown diarrhea Verified 10/02/20 03:01 latex Allergy Unknown RASH Verified 10/02/20 03:01 propoxyphene Allergy Unknown DISORIENTED Verified 10/02/20 03:01 hydrochlorothiazide AdvReac Intermediate DIZZINESS Verified 10/02/20 03:01 triamterene AdvReac Intermediate DIZZINESS Verified 10/02/20 03:01 lisinopril AdvReac Unknown COUGH Verified 10/02/20 03:01 Home Medications Medication Instructions Recorded Confirmed Type Lactobacillus acidophilus 10,000 mmu cells PO DAILY 10/02/20 10/02/20 History [Probiotic] albuterol sulfate [ProAir HFA] 2 puff INHALATION QID 10/02/20 10/02/20 History bupropion HCl [Wellbutrin XL] 450 mg PO QAM 10/02/20 10/02/20 History cholecalciferol (vitamin D3) 50 mcg PO DAILY 10/02/20 10/02/20 History [Vitamin D3] coenzyme Q10 [CoQ-10] 100 mg PO DAILY 10/02/20 10/02/20 History cyclobenzaprine [Flexeril] 10 mg PO .DAILY @ 189910/02/20 10/02/20 History diclofenac sodium [Voltaren] 150 mg PO DAILY 10/02/20 10/02/20 History dicyclomine [Bentyl] 20 mg PO QID PRN 10/02/20 10/02/20 History flunisolide 2 spray INTRANASAL DAILY 10/02/20 10/02/20 History gabapentin 100 mg PO .DAILY @ 189910/02/20 10/02/20 History hydrocodone-acetaminophen 1 tab PO Q4H PRN 10/02/20 10/02/20 History ipratropium-albuterol [DuoNeb] 3 ml INHALATION QID 10/02/20 10/02/20 History levocetirizine 5 mg PO PM 10/02/20 10/02/20 History levothyroxine See Rx Instructions .ROUTE .COMPLEX 10/02/20 10/02/20 History losartan 100 mg PO DAILY 10/02/20 10/02/20 History melatonin 5 mg PO HS PRN 10/02/20 10/02/20 History metformin 500 mg PO BID 10/02/20 10/02/20 History milk thistle 500 mg PO DAILY 10/02/20 10/02/20 History mometasone-formoterol [Dulera] 2 puff INHALATION BID 10/02/20 10/02/20 History montelukast [Singulair] 10 mg PO DAILY 10/02/20 10/02/20 History nystatin 1 applic TOPICAL TID PRN 10/02/20 10/02/20 History ondansetron HCl [Zofran] 4 - 8 mg PO TID PRN 10/02/20 10/02/20 History rosuvastatin [Crestor] 10 mg PO HS 10/02/20 10/02/20 History triamcinolone acetonide 1 applic TOPICAL TID PRN 10/02/20 10/02/20 History [Aristocort] vitamin B comp and C no.3 [B 1 cap PO DAILY 10/02/20 10/02/20 History Complex Plus Vitamin C] Patient History Medical History (Updated 10/02/20 @ 06:39 by HETAL Parker) Asthma Diabetes mellitus Dyslipidemia Hypothyroidism Social History Smoking Status: Never smoker Second Hand Exposure: No; Do You Dip or Chew Tobacco: No; Hx Substance Use: Yes (Medical Marijuana for chronic pain) Preferred Language: Luxembourger Communication Ability: Effective Stadium Attendant Required: No Beliefs That Will Affect Care: None Current Living Situation: Alone Other Information That Helps Us Care for You: No Feels Safe at Home: Yes Safety Concerns: Feels Safe At This Time Assistive Devices: BiPap Review of Systems Review of Systems: All systems reviewed & are unremarkable except as noted in HPI & below Physical Exam Constitutional: + obese, cooperative and comfortable Eyes: PERRL, conjunctivae normal, anicteric sclerae ENMT: external ear and nose normal, oropharynx normal Neck: trachea midline, no thyromegaly Respiratory: Fine crackles auscultated bilaterally in all lobes more prominent in the bases. Symmetrical chest wall movement. Patient is slightly tachypneic with respiratory rate in the low 20s. No coughing, no wheezes. Nonlabored jake thing and no use of accessory muscles. Cardiovascular: RRR, no murmur, no edema Heart Sounds: normal S1 and normal S2 Extremities: normal capillary refill; no edema Gastrointestinal (Abdomen): Patient does have a right upper quadrant abdominal hernia which she states has been stable for 2 years. Abdomen is obese, soft and nontender. Bowel sounds present in all 4 quadrants Skin: no rashes, warm and dry Neurologic: PERRL, EOMI, accommodation nl, no face palsy, no dysarthria Psychiatric: A+Ox3, euthymic affect Results & Data Results & Data ([place]) Vital Signs (Past 12 Hours) Vital Signs Temp Pulse Resp BP Pulse Ox 10/02/20 03:14 116 H 22 194/161 H 98 10/02/20 03:03 36.9 C 111 H 30 H 180/151 H 94 10/02/20 03:00 108 H 34 H 93 Coding Level of Care Code Critical Care 1st 30-[address] elevation (STEMI) myocardial infarction I21.3 Involved coronary artery: unspecified coronary artery Chest pain I25.9 Chest pain type: chest pain due to myocardial ischemia Ischemic chest pain type: unspecified angina pectoris type CHF (congestive heart failure) I50.9 Heart failure chronicity: unspecified Heart failure type: unspecified Arthritis of knee, left M17.12 Acute dyspnea R06.00 Acute hypoxemic respiratory failure J96.01 Diabetes mellitus E11.9 Hypothyroidism E03.9 Dyslipidemia E78.5 Asthma J45.909 (1) CHF (congestive heart failure) Heart failure chronicity: unspecified Heart failure type: unspecified Qualified Code(s): I50.9 - Heart failure, unspecified (2) ST elevation (STEMI) myocardial infarction Involved coronary artery: unspecified coronary artery Qualified Code(s): I21.3 - ST elevation (STEMI) myocardial infarction of unspecified site (3) Chest pain Chest pain type: chest pain due to myocardial ischemia Ischemic chest pain type: unspecified angina pectoris type Qualified Code(s): I25.9 - Chronic ischemic heart disease, unspecified
[2020-10-02] MEDS ORDERED: MELATONIN 3 MG TAB PO PRN (06:22)
[2020-10-02] MEDS: INSULIN ASPART 100 UNITS/ML 3 ML PEN SC SCH ×4 (06:34→20:49)
[2020-10-02] MEDS: LEVOTHYROXINE SODIUM 50 MCG TABLET PO SCH (06:36)
[2020-10-02] MEDS: NITROGLYCERIN/D5W 100MCG/ML 250 ML IV SCH (06:37)
[2020-10-02] MEDS ORDERED: ALBUT/IPRATROP 3MG/0.5MG NEB 3 ML VIAL NEB PRN (06:49)
[2020-10-02] MEDS ORDERED: PERFLUTREN LIPID MICROSPHERE (DEFINITY) IV ONE (08:20)
[2020-10-02] MEDS: XYZAL~ORDER AWAITING ACTION SCH ×2 (08:22→14:21)
--- NOTE | 2020-10-02 08:59 | XRay Report ---
XR chest 1V portable CLINICAL HISTORY: Respiratory failure COMPARISON STUDY: 07/04/2011 FINDINGS: The heart is borderline enlarged. There are extensive bilateral pulmonary airspace opacitie s. The findings likely represent a multifocal pneumonia although an atypical appearance of pulmonary edema could appear similar. Clinical and radiographic follow-up is recommended.[ IMPRESSION: 1. Extensive multifocal bilateral pulmonary airspace opacities. A multifocal pneumonia is favored ove r pulmonary edema. Clinical and radiographic follow-up is recommended. ACT 112: Negative or not required by law. Electronically signed by: Garrison Sequeira M.D. 10/02/2020 8:58 AM
[2020-10-02] MEDS ORDERED: LOSARTAN POTASSIUM 25 MG TAB PO SCH (09:00)
[2020-10-02] MEDS: FLUTICASONE/VILANTEROL 100/25MCG 14 PUFFS/INHALER INH SCH (09:58)
[2020-10-02] MEDS: ASPIRIN 81 MG ECTAB PO SCH (09:59)
[2020-10-02] MEDS: METOPROLOL TARTRATE 25 MG TAB PO SCH ×2 (09:59→20:53)
[2020-10-02] MEDS: VITAMIN B COMPLEX TAB PO SCH (09:59)
[2020-10-02] MEDS: ADVANCED PROBIOTIC 1250 MG CAPSULE PO SCH (09:59)
[2020-10-02] MEDS: ROSUVASTATIN CALCIUM 20 MG TAB PO SCH (09:59)
[2020-10-02] MEDS: MONTELUKAST SODIUM 10 MG TABLET PO SCH (10:00)
[2020-10-02] MEDS: LOSARTAN POTASSIUM 50 MG TAB PO SCH (10:00)
[2020-10-02] MEDS: buPROPion XL 150 MG TABCR PO SCH (10:00)
[2020-10-02] MEDS: ENOXAPARIN INJ 40 MG/0.4 ML SYR SQ SCH (10:36)
--- NOTE | 2020-10-02 12:03 | XCELERA ---
[id number] \\[id number]___[id number]
[2020-10-02] MEDS ORDERED: ACETAMINOPHEN 500 MG TAB PO ONE (12:54)
[2020-10-02] MEDS ORDERED: TROLAMINE SALICYLATE 10% CRM 255 APPLN/85 GM TUBE EXT PRN (12:54)
--- NOTE | 2020-10-02 13:13 | Cardiology Progress Note ---
Date of Service October 02, 2020 Assessment & Plan (1) ST elevation (STEMI) myocardial infarction: Post PCI to proximal circumflex, OM 3 2. Severe nonculprit disease (80% proximal RCA, atretic distal LAD) 3. Ischemic cardiomyopathyEF 35% 4. Acute systolic heart failureimproved congestion after IV Lasix 5. ABEBA 6. Hypertension 7. Dyslipidemia Patient remains chest pain-free, hemodynamically and electrically stable. Improved congestion on exam following diuresis. No apparent access site complications Repeat troponin until trending down Continue DAPT with aspirin, ticagrelor Continue current metoprolol, losartan and Crestor. We will continue to follow. Admission and Anticipated Discharge Date Admission Date: October 02, 2020 Subjective Feeling well this afternoon. Denies any recurrent squeezing chest pressure. Still with some persistent right shoulder pain. Breathing comfortably, BiPAP removed while at bedside. Negative about 700 since IV Lasix Troponin greater than 200. EchocardiogramEF around 35% with posterior akinesis, inferior, lateral hypokinesis. [place] also appears akinetic Review of Systems Review of Systems: All systems reviewed & are unremarkable except as noted in HPI & below Physical Exam Physical Exam: General: Comfortable, no acute distress HEENT: Sclerae anicteric, mucous membranes moist Lungs: For the most part clear, wheezing/crackles from this morning improved Cardiac: Regular rate and rhythm, no murmurs. Abdomen: Soft, nontender, nondistended, positive bowel sounds. Extremities: Warm, well perfused, no edema. TR band removed. Small mild ecchymosis at access site. No hematoma Skin: No rashes or lesions. Neuro: Nonfocal Psych: Alert orient x3, normal affect and mood [facility] ([facility] Vital Signs (Past 12 Hours) Vital Signs Temp Pulse Pulse Resp BP BP Pulse Ox 10/02/20 12:01 90 21 113/65 97 10/02/20 12:00 75 25 H 98 10/02/20 11:31 86 16 115/79 97 10/02/20 11:30 86 15 98 10/02/20 11:02 94 H 20 154/73 H 99 10/02/20 11:00 94 H 18 100 10/02/20 10:50 93 H 24 100 10/02/20 10:31 94 H 20 112/98 99 10/02/20 10:30 89 20 99 11/22/20 10:01 80 15 132/84 97 10/02/20 10:00 74 14 98 10/02/20 09:31 70 15 121/80 97 10/02/20 09:30 72 14 96 10/02/20 09:02 69 15 96 10/02/20 09:01 70 15 121/87 97 10/02/20 09:00 75 15 96 10/02/20 08:45 75 15 97 10/02/20 08:31 61 16 121/74 99 10/02/20 08:30 87 21 98 10/02/20 08:15 81 16 98 10/02/20 08:00 91 H 18 95 10/02/20 07:50 96 H 18 110/75 93 10/02/20 07:45 91 H 17 98 10/02/20 07:35 89 16 118/76 97 10/02/20 07:30 88 19 97 10/02/20 07:21 92 H 16 95 10/02/20 07:20 91 H 16 111/74 95 10/02/20 07:18 97 H 19 97 10/02/20 07:10 91 H 17 96 10/02/20 07:05 90 17 111/82 96 10/02/20 07:00 91 H 18 95 10/02/20 06:51 92 H 19 97 10/02/20 06:50 98 H 23 127/77 99 10/02/20 06:40 98 H 21 95 10/02/20 06:35 100 H 19 112/74 99 10/02/20 06:30 96 H 23 96 10/02/20 06:21 100 H 21 95 10/02/20 06:20 98 H 17 123/84 94 10/02/20 06:10 98 H 19 96 10/02/20 06:06 98 H 26 H 129/87 100 10/02/20 06:00 109 H 15 95 10/02/20 05:53 96 H 21 120/80 94 10/02/20 05:51 94 H 18 93 10/02/20 05:50 101 H 17 94 10/02/20 05:40 98 H 20 96 10/02/20 05:35 100 H 25 H 139/91 94 10/02/20 05:31 93 10/02/20 05:23 97.5 F L 103 H 22 160/104 H 99 10/02/20 05:21 100 H 21 96 10/02/20 05:20 97 H 23 129/107 H 97 10/02/20 05:12 103 H 25 H 93 10/02/20 04:50 98 H 23 99 10/02/20 03:14 116 H 22 194/161 H 98 10/02/20 03:08 194/161 H 10/02/20 03:03 98.4 F 111 H 30 H 180/151 H 94 10/02/20 03:00 108 H 34 H 93 Pulse Ox 10/02/20 12:01 10/02/20 12:00 10/02/20 11:31 10/02/20 11:30 10/02/20 11:02 10/02/20 11:00 10/02/20 10:50 10/02/20 10:31 10/02/20 10:30 10/02/20 10:01 10/02/20 10:00 10/02/20 09:31 10/02/20 09:30 10/02/20 09:02 10/02/20 09:01 10/02/20 09:00 10/02/20 08:45 10/02/20 08:31 10/02/20 08:30 10/02/20 08:15 10/02/20 08:00 96 10/02/20 07:50 10/02/20 07:45 10/02/20 07:35 10/02/20 07:30 10/02/20 07:21 10/02/20 07:20 10/02/20 07:18 10/02/20 07:10 10/02/20 07:05 10/02/20 07:00 10/02/20 06:51 10/02/20 06:50 10/02/20 06:40 10/02/20 06:35 10/02/20 06:30 10/02/20 06:21 10/02/20 06:20 10/02/20 06:10 10/02/20 06:06 10/02/20 06:00 10/02/20 05:53 10/02/20 05:51 10/02/20 05:50 10/02/20 05:40 10/02/20 05:35 10/02/20 05:31 10/02/20 05:23 10/02/20 05:21 10/02/20 05:20 10/02/20 05:12 10/02/20 04:50 10/02/20 03:14 10/02/20 03:08 10/02/20 03:03 10/02/20 03:00 PG Care Time/CCT Total # of Minutes Spent Total Time Spent with Patient: Total time spent is greater than 50% in coordination of care (as documented) at patient's floor/unit and/or counseling patient: Coding Level of Care Code None Diagnoses ST elevation (STEMI) myocardial infarction I21.3 Involved coronary artery: unspecified coronary artery (1) ST elevation (STEMI) myocardial infarction Involved coronary artery: unspecified coronary artery Qualified Code(s): I21.3 - ST elevation (STEMI) myocardial infarction of unspecified site
--- NOTE | 2020-10-02 14:26 | Hospitalist Progress Note ---
Date of Service October 02, 2020 Assessment & Plan (1) ST elevation (STEMI) myocardial infarction: s/p PCI x two KINGS. Cont medical management with Brillinta, ASA, Metoprolol, Crestor, and Cozaar. (2) CHF (congestive heart failure): Nitro drip overnight in the ICU and received Lasix 40mg IV with good diuresis 1.2L out. BIPAP for a few hours until mid-day helped her to ventilate. Appears more euvolemic now. BP and HR are within normal limits off the nitro drip and her lungs are clear to auscultation. (3) Diabetes mellitus: HBA1C pending. Hold metformin and give insulin coverage while hospital ized. Currently at inpatient goal. (4) Hypothyroidism: Chronic, stable, cont home dose of Synthroid. (5) Osteoarthritis: Giving APAP 1000mg x 1 now. Pt reports using sports cream and Diclofenac cream at home also. She also uses gabapentin (ordered) and [place] (added order). PDMP was reviewed and she only receives 10 pills every couple of months; she is not a chronic daily narcotic user. (6) Obesity: Lifestyle modifications need to start on discharge including new diet and increased exercise to decrease overall percent body fat and increase lean muscle mass. (7) DVT prophylaxis: Lovenox Full Dispo-remain in ICU until consistently hemodynamically stable as a CCU patient. Especially with the current nursing situation in the hospital. Would prefer she stay in the ICU today and consider step down to PCU tomorrow if stable or improving. Carolyn Camarillo DO [facility] Hospitalist Admission and Anticipated Discharge Date Admission Date: October 02, 2020 Subjective cc: 70 yo diabetic female with STEMI overnight s/p cardiac cath with PCI -denies CP this morning -reports having R shoulder joint pain consistent with her chronic arthritis -asked to review her outpatient meds which we did -tolerating PO -some coughing as patient was just off the BIPAP from this morning. Review of Systems Review of Systems: All systems reviewed & are unremarkable except as noted in Subjective Physical Exam Physical Exam: CONSTITUTIONAL: obese, vitals as above, generally well- appearing EYES: normal conjunctivae, no scleral icterus ENT: external ear and nose normal, oropharynx clear, MMM RESPIRATORY: clear to auscultation bilaterally, no crackles, rales or wheezes, normal respiratory effort CARDIOVASCULAR: regular rate and rhythm, S1 and 2 heard without murmurs, gallops or rubs, no JVD, no peripheral edema GASTROINTESTINAL: soft, nontender, nondistended, no guarding MUSCULOSKELETAL: strength 5/5 throughout, head is normocephalic and atraumatic SKIN: warm and dry NEUROLOGIC: CN 2-12 grossly intact, normal cognition, normal speech PSYCHIATRIC: alert cooperative and oriented to person, place and time. Results & Data Results & Data ([facility]) Vital Signs (Past 12 Hours) Vital Signs Temp Pulse Pulse Resp BP BP Pulse Ox 10/02/20 14:00 82 15 131/78 94 10/02/20 13:30 77 15 93 10/02/20 13:00 78 15 93 10/02/20 12:30 92 H 16 96 10/02/20 12:02 86 19 98 10/02/20 12:01 90 21 113/65 97 10/02/20 12:00 75 25 H 98 10/02/20 11:31 86 16 115/79 97 10/02/20 11:30 86 15 98 10/02/20 11:02 94 H 20 154/73 H 99 10/02/20 11:00 94 H 18 100 10/02/20 10:50 93 H 24 100 10/02/20 10:31 94 H 20 112/98 99 10/02/20 10:30 89 20 99 10/02/20 10:01 80 15 132/84 97 10/02/20 10:00 74 14 98 10/02/20 09:31 70 15 121/80 97 10/02/20 09:30 72 14 96 10/02/20 09:02 69 15 96 10/02/20 09:01 70 15 121/87 97 10/02/20 09:00 75 15 96 10/02/20 08:45 75 15 97 10/02/20 08:31 61 16 121/74 99 10/02/20 08:30 87 21 98 10/02/20 08:15 81 16 98 10/02/20 08:00 91 H 18 95 10/02/20 07:50 96 H 18 110/75 93 10/02/20 07:45 91 H 17 98 10/02/20 07:35 89 16 118/76 97 10/02/20 07:30 88 19 97 11/22/20 07:21 92 H 16 95 10/02/20 07:20 91 H 16 111/74 95 10/02/20 07:18 97 H 19 97 10/02/20 07:10 91 H 17 96 10/02/20 07:05 90 17 111/82 96 10/02/20 07:00 91 H 18 95 10/02/20 06:51 92 H 19 97 10/02/20 06:50 98 H 23 127/77 99 10/02/20 06:40 98 H 21 95 10/02/20 06:35 100 H 19 112/74 99 10/02/20 06:30 96 H 23 96 10/02/20 06:21 100 H 21 95 10/02/20 06:20 98 H 17 123/84 94 10/02/20 06:10 98 H 19 96 10/02/20 06:06 98 H 26 H 129/87 100 10/02/20 06:00 109 H 15 95 10/02/20 05:53 96 H 21 120/80 94 10/02/20 05:51 94 H 18 93 10/02/20 05:50 101 H 17 94 10/02/20 05:40 98 H 20 96 10/02/20 05:35 100 H 25 H 139/91 94 10/02/20 05:31 93 10/02/20 05:23 36.4 C L 103 H 22 160/104 H 99 10/02/20 05:21 100 H 21 96 10/02/20 05:20 97 H 23 129/107 H 97 10/02/20 05:12 103 H 25 H 93 10/02/20 04:50 98 H 23 99 10/02/20 03:14 116 H 22 194/161 H 98 10/02/20 03:08 194/161 H 10/02/20 03:03 36.9 C 111 H 30 H 180/151 H 94 10/02/20 03:00 108 H 34 H 93 Pulse Ox 10/02/20 14:00 10/02/20 13:30 10/02/20 13:00 10/02/20 12:30 10/02/20 12:02 10/02/20 12:01 10/02/20 12:00 10/02/20 11:31 10/02/20 11:30 10/02/20 11:02 10/02/20 11:00 10/02/20 10:50 10/02/20 10:31 10/02/20 10:30 10/02/20 10:01 10/02/20 10:00 10/02/20 09:31 10/02/20 09:30 10/02/20 09:02 10/02/20 09:01 10/02/20 09:00 10/02/20 08:45 10/02/20 08:31 10/02/20 08:30 10/02/20 08:15 10/02/20 08:00 96 10/02/20 07:50 10/02/20 07:45 10/02/20 07:35 10/02/20 07:30 10/02/20 07:21 10/02/20 07:20 10/02/20 07:18 10/02/20 07:10 10/02/20 07:05 10/02/20 07:00 10/02/20 06:51 10/02/20 06:50 10/02/20 06:40 10/02/20 06:35 10/02/20 06:30 10/02/20 06:21 10/02/20 06:20 10/02/20 06:10 10/02/20 06:06 10/02/20 06:00 10/02/20 05:53 10/02/20 05:51 10/02/20 05:50 10/02/20 05:40 10/02/20 05:35 10/02/20 05:31 10/02/20 05:23 10/02/20 05:21 10/02/20 05:20 10/02/20 05:12 10/02/20 04:50 10/02/20 03:14 10/02/20 03:08 10/02/20 03:03 10/02/20 03:00 Laboratory Results Short CBC 10/02/20 Range/Units 03:03 WBC 16.59 H (4.8-10.8) K/uL Hgb 15.6 (12.0-16.0) g/dL Hct 48.0 H (37-47) % Plt Count 297 (130-400) K/uL BMP 10/02/20 03:03 Sodium 140 Potassium 4.0 Chloride 112 H Carbon Dioxide 22 BUN 17 Creatinine 1.29 H Glucose 267 H Calcium 8.5 Cardiac Enzymes 10/02/20 10/02/20 Range/Units 03:03 10:13 Total Creatine Kinase 204 H (26-192) U/L CK-MB (CK-2) 19.3 H (0.5-3.6) ng/ml Troponin I 0.848 H* > 200.000 H* (0-0.045) ng/ml Liver Function 10/02/20 Range/Units 03:03 Total Bilirubin 0.3 (0.2-1) mg/dl AST 30 (15-37) U/L ALT 30 (12-78) U/L Alkaline Phosphatase 85 (45-117) U/L Albumin 3.3 L (3.4-5.0) gm/dl Medications Administered Current Inpatient Medications Acetaminophen (Acetaminophen 325 Mg Tab) 650 mg PO Q4H PRN PRN Reason: MILD Pain (Scale 1,2,3) Stop: 11/01/20 04:34 Hydrocodone Bitart/Acetaminophen (Hydrocodone/Acetamophen 5/325mg Tab) 1 tab PO Q4H PRN PRN Reason: Pain, Severe Stop: 10/16/20 05:36 Hydrocodone Bitart/Acetaminophen (Hydrocodone/Acetamophen 5/325mg Tab) 1 tab PO DAILY PRN PRN Reason: severe pain Stop: 10/16/20 12:44 Albuterol (Albut/Ipratrop 3mg/0.5mg Neb 3 Ml Vial) 3 ml NEB Q4R PRN PRN Reason: Shortness Of Breath Or Wheezing Stop: 11/01/20 06:59 Aspirin (Aspirin 81 Mg Ectab) 81 mg PO QAM GISSEL Stop: 11/01/20 08:59 Last Admin: 10/02/20 09:59 Dose: 81 mg Documented by: Bupropion HCl (Bupropion Xl 150 Mg Tabcr) 450 mg PO QAM GISSEL Stop: 11/01/20 08:59 Last Admin: 10/02/20 10:00 Dose: 450 mg Documented by: Dextrose (Dextrose 50% 50 Ml Syringe) 25 - 50 ml IV UD PRN; Protocol PRN Reason: Hypoglycemia Protocol Stop: 11/01/20 05:36 Enoxaparin Sodium (Enoxaparin Inj 40 Mg/0.4 Ml Syr) 40 mg SQ QAM GISSEL Stop: 11/01/20 08:59 Last Admin: 10/02/20 10:36 Dose: 40 mg Documented by: Fluticasone/Vilanterol (Fluticasone/Vilanterol 100/25mcg 14 Puffs/Inhaler) 1 puffs INH DAILY [facility] Stop: 11/01/20 08:59 Last Admin: 10/02/20 09:58 Dose: 1 puffs Documented by: Gabapentin (Gabapentin 100 Mg Cap) 200 mg PO 1900 [facility] Stop: 11/01/20 18:59 Glucagon (Glucagon For Inj 1 Mg Vial) 1 mg SQ UD PRN; Protocol PRN Reason: Hypoglycemia Protocol Stop: 11/01/20 05:36 Glucose (Glucose 10 Tabs/Tube) 4 - 8 tabs PO UD PRN; Protocol PRN Reason: Hypoglycemia Protocol Stop: 11/01/20 05:36 Glucose (Glucose 40% Gel 15 Gm Tube) 15 - 30 gm PO UD PRN; Protocol PRN Reason: Hypoglycemia Protocol Stop: 11/01/20 05:36 Promethazine HCl 12.5 mg/ (Sodium Chloride) 50.5 mls @ 202 mls/hr IV Q6H PRN PRN Reason: Nausea And Vomiting Stop: 11/01/20 05:36 Nitroglycerin/Dextrose (Nitroglycerin/D5w 100 Mcg/Ml) 250 mls @ 3 mls/hr IV .Q24H [facility]; Protocol Stop: 11/01/20 06:14 Last Titration: 10/02/20 07:22 Dose: 10 mcg/min, 6 mls/hr Documented by: Insulin Aspart (Insulin Aspart 100 Units/Ml 3 Ml Pen) 0 units SC ACHS [facility] Stop: 11/01/20 06:29 Last Admin: 10/02/20 12:01 Dose: 1 units Documented by: Lactobacillus Acidoph/Casei/Rhamnos (Advanced Probiotic 1250 Mg Capsule) 2 cap PO DAILY [facility] Stop: 11/01/20 08:59 Last Admin: 10/02/20 09:59 Dose: 2 cap Documented by: Levothyroxine Sodium (Levothyroxine Sodium 50 Mcg Tablet) 50 mcg PO SuWe@0630 [facility] Stop: 11/01/20 06:29 Last Admin: 10/02/20 06:36 Dose: 50 mcg Documented by: Levothyroxine Sodium (Levothyroxine Sodium 25 Mcg Tablet) 25 mcg PO MoTuThFrSa@0630 GISSEL Stop: 11/02/20 06:29 Losartan Potassium (Losartan Potassium 50 Mg Tab) 100 mg PO DAILY GISSEL Stop: 11/01/20 08:59 Last Admin: 10/02/20 10:00 Dose: 100 mg Documented by: Melatonin (Melatonin 3 Mg Tab) 6 mg PO HSZ PRN PRN Reason: Sleep Stop: 11/01/20 06:21 Metoprolol Tartrate (Metoprolol Tartrate 25 Mg Tab) 25 mg PO BID GISSEL Stop: 11/01/20 08:59 Last Admin: 10/02/20 09:59 Dose: 25 mg Documented by: Miscellaneous (Icu Protocol For Hyperglycemia) 1 ea N/A PRN PRN; Protocol PRN Reason: Hyperglycemia Protocol Stop: 10/04/20 04:34 Miscellaneous (Flunisolide~Order Awaiting Action) 1 ea N/A QS GISSEL Stop: 11/01/20 07:59 Last Admin: 10/02/20 14:21 Dose: Not Given Documented by: Miscellaneous (Carbohydrates For Hypoglycemia ) 15 - 30 gm PO UD PRN PRN Reason: Hypoglycemia Protocol Stop: 11/01/20 05:36 Miscellaneous (Xyzal~Order Awaiting Action) 1 ea N/A QS [facility] Stop: 11/01/20 07:59 Last Admin: 10/02/20 14:21 Dose: Not Given Documented by: Montelukast Sodium (Montelukast Sodium 10 Mg Tablet) 10 mg PO DAILY GISSEL Stop: 11/01/20 08:59 Last Admin: 10/02/20 10:00 Dose: 10 mg Documented by: Morphine Sulfate (Morphine Sulfate 4 Mg/Ml 1 Ml Carp\Vial) 4 mg IV Q4H PRN PRN Reason: Pain Stop: 10/16/20 05:36 Nitroglycerin (Nitroglycerin Sl 0.4 Mg/Tab Tab) 0.4 mg SL PRN PRN PRN Reason: Chest Pain Stop: 11/01/20 04:34 Ondansetron HCl (Ondansetron Inj 2 Mg/Ml 2 Ml Vial) 4 mg IV Q6H PRN PRN Reason: Nausea And Vomiting Stop: 11/01/20 04:34 Rosuvastatin Calcium (Rosuvastatin Calcium 20 Mg Tab) 40 mg PO QAM GISSEL Stop: 11/01/20 08:59 Last Admin: 10/02/20 09:59 Dose: 40 mg Documented by: Ticagrelor (Ticagrelor 90 Mg Tab) 90 mg PO BID GISSEL Stop: 11/01/20 16:59 Trolamine Salicylate (Trolamine Salicylate 10% Crm 255 Appln/85 Gm Tube) 1 appln EXT BID PRN PRN Reason: arthritis pain Stop: 11/01/20 12:53 Vitamin B Complex (Vitamin B Complex Tab) 1 tab PO DAILY GISSEL Stop: 11/01/20 08:59 Last Admin: 10/02/20 09:59 Dose: 1 tab Documented by: (1) ST elevation (STEMI) myocardial infarction Involved coronary artery: unspecified coronary artery Qualified Code(s): I21.3 - ST elevation (STEMI) myocardial infarction of unspecified site (2) CHF (congestive heart failure) Heart failure chronicity: unspecified Heart failure type: unspecified Qualified Code(s): I50.9 - Heart failure, unspecified
[2020-10-02] MEDS: TICAGRELOR 90 MG TAB PO SCH (16:58)
[2020-10-02] MEDS: GABAPENTIN 100 MG CAP PO SCH (16:58)
[2020-10-02] MEDS ORDERED: GABAPENTIN 100 MG CAP PO SCH (19:00)
--- NOTE | 2020-10-02 21:59 | Electrocardiogram Report ---
Test Reason : Blood Pressure : / mmHG Vent. Rate : 111 BPM Atrial Rate : 111 BPM P-R Int : 166 ms QRS Dur : 116 ms QT Int : 308 ms P-R-T Axes : 054 055 082 degrees QTc Int : 418 ms Poor data quality, interpretation may be adversely affected Sinus tachycardia with frequent Premature ventricular complexes ST elevation consider inferolateral injury or acute infarct ACUTE [place] / STEMI Abnormal ECG When compared with ECG of 08-MAY-2018 15:10, ST elevation is now present in the inferolateral leads Premature ventricular complexes are now Present Confirmed by Avinash Silvestre ([id number]) on 10/02/2020 9:58:36 PM Referred By: REFERRED SELF Confirmed By:Avinash Silvestre
--- NOTE | 2020-10-02 22:05 | Electrocardiogram Report ---
Test Reason : Blood Pressure : / mmHG Vent. Rate : 102 BPM Atrial Rate : 102 BPM P-R Int : 174 ms QRS Dur : 106 ms QT Int : 352 ms P-R-T Axes : 059 043 012 degrees QTc Int : 458 ms Sinus tachycardia with frequent Premature ventricular complexes Lateral infarct , age undetermined ST elevation, consider inferolateral injury pattern Abnormal ECG When compared with ECG of 02-OCT-2020 03:03, ST less elevated in Inferolateral leads ST no longer depressed in Anterior leads Confirmed by Avinash Silvestre ([id number]) on 10/02/2020 10:05:04 PM Referred By: REFERRED SELF Confirmed By:Avinash Silvestre
[2020-10-03] MEDS: XYZAL~ORDER AWAITING ACTION SCH ×2 (00:56→08:00)
[2020-10-03 05:05] LABS: Basophils # (auto) 0.02 K/uL (0-0.2); Basophils % (auto) 0.2 %; Eosinophils # (auto) 0.06 K/uL (0-0.5); Eosinophils % (auto) 0.5 %; Hematocrit (blood only) 42.7 % (37-47); Immature Granulocytes # (auto) 0.02 K/uL (0.00-0.02); Immature Granulocytes % (auto) 0.2 %; Lymphocytes # (auto) 2.81 K/uL (1.2-3.4); Mean Corpuscular Hemoglobin 28.5 pg (25-34); Mean Corpuscular Hgb Conc 32.8 g/dL (32-36); Mean Corpuscular Volume 86.8 fL (80-100); Mean Platelet Volume 11.1 fL (7.4-10.4); Monocytes # (auto) 0.64 K/uL (0.11-0.59); Neutrophils # (auto) 9.22 K/uL (1.4-6.5); Neutrophils % (auto) 72.1 %; Platelet Count 309 K/uL (130-400); RDW Coefficient of Variation 14.3 % (11.5-14.5); RDW Standard Deviation 45.4 fL (36.4-46.3); Red Blood Count 4.92 M/uL (4.2-5.4); White Blood Count 12.77 K/uL (4.8-10.8)
[2020-10-03 05:37] LABS: BUN Creatinine Ratio 13.2 (10-20); Calcium 8.6 mg/dl (8.5-10.1); Creatinine Clr Calc Pharmacy 55.9 ml/min; Est GFR (African American) 52.9; Est GFR (Non-African American) 45.6; Magnesium 2.1 mg/dl (1.8-2.4); Potassium 3.8 mmol/L (3.5-5.1)
[2020-10-03] MEDS: LEVOTHYROXINE SODIUM 25 MCG TABLET PO SCH (05:58)
[2020-10-03] MEDS ORDERED: POTASSIUM CHLORIDE CRTAB 20 MEQ TABCR PO STA (05:59)
[2020-10-03 06:03] LABS: Phosphorus 2.8 mg/dl (2.5-4.9)
[2020-10-03 06:40] LABS: Appearance Urine Clear (Clear); Bacteria Urine Automated Negative (Negative); Bilirubin Urine Negative (Negative); Blood Urine 2+ (Negative); Color Urine Yellow; Glucose Urine UA Negative (Negative); Ketones Urine Negative (Negative); Leukocyte Esterase Urine Trace (Negative); Nitrite Urine Negative (Negative); Protein Urine Negative (Negative); Specific Gravity Urine 1.027 (1.000-1.030); Urobilinogen Urine Negative (Negative); pH Urine 5.5 (4.5-7.5)
[2020-10-03] MEDS: NITROGLYCERIN/D5W 100MCG/ML 250 ML IV SCH (06:40)
[2020-10-03 07:17] LABS: Estimated Average Glucose 163 mg/dl; Hemoglobin A1C 7.3 % (4.5-5.6)
[2020-10-03] MEDS: INSULIN ASPART 100 UNITS/ML 3 ML PEN SC SCH ×5 (07:54→20:58)
[2020-10-03] MEDS: ASPIRIN 81 MG ECTAB PO SCH (07:56)
[2020-10-03] MEDS: ROSUVASTATIN CALCIUM 20 MG TAB PO SCH (07:57)
[2020-10-03] MEDS: METOPROLOL TARTRATE 25 MG TAB PO SCH (07:57)
[2020-10-03] MEDS: VITAMIN B COMPLEX TAB PO SCH (07:57)
[2020-10-03] MEDS: ADVANCED PROBIOTIC 1250 MG CAPSULE PO SCH (07:58)
[2020-10-03] MEDS: buPROPion XL 150 MG TABCR PO SCH (07:58)
[2020-10-03] MEDS: MONTELUKAST SODIUM 10 MG TABLET PO SCH (07:59)
[2020-10-03] MEDS: TICAGRELOR 90 MG TAB PO SCH ×2 (07:59→20:57)
[2020-10-03] MEDS: FLUTICASONE/VILANTEROL 100/25MCG 14 PUFFS/INHALER INH SCH (08:00)
[2020-10-03] MEDS: LOSARTAN POTASSIUM 50 MG TAB PO SCH (08:01)
--- NOTE | 2020-10-03 08:03 | Critical Care Progress Note ---
Date of Service October 03, 2020 Assessment & Plan (1) ST elevation (STEMI) myocardial infarction: Impression: 70-year-old female with obesity admitted with ST elevation myocardial infarction status post cardiac catheterization and placement of drug- eluting stent. She initially was on BiPAP for fluid overload but has improved significantly. Recommendations: 1. ST elevation myocardial infarction. Troponin appears to have peaked. Continue goal-directed therapy per cardiology. BNP on presentation was 468 2. Systolic heart failure: BNP was normal on presentation but echocardiogram showed an EF of 35 to 40% with akinetic inferior lateral vaughn and an akinetic apex with hypokinesis of the lateral and inferior vaughn. Grade 1 diastolic dysfunction was noted. Right atrial pressures were normal. Continue supportive care. 3. Acute kidney injury: Mild elevation in serum creatinine which appears to be improving today. Continue to follow closely. Avoid additional nephrotoxins. 4. Abnormal chest x-ray: Patient's pro calcitonin was negative on presentation and Covid testing was negative. Unclear if this represents atypical heart failure versus pneumonia. Her white count is elevated. The fever and elevation of white count could be attributable to the acute myocardial infarction however seems more prudent to cover her for antibiotics and will place her on a 5-day course of Rocephin and doxycycline. We will recheck a BNP level. She does not appear overtly fluid overloaded but will gently touch her with diuretics as well. 5. Fevers: See above. Her urinalysis did show leuk esterase however appears to have been a contaminated specimen with 10-20 epithelial cells so doubt urinary tract infection. Recheck procalcitonin 6. Discontinue Singh catheter. Out of bed to chair. Will need cardiac rehab. PT and OT evaluations. 7. Reported history of asthma. The patient is not bronchospastic currently. Continue her current inhalers. No indication for steroids. She did do better as she increases her activity and gets out of bed Okay to transfer out of the intensive care unit. We will sign off. Feel free to contact us if we can be of additional assistance (2) CHF (congestive heart failure): (3) Acute hypoxemic respiratory failure: Admission and Anticipated Discharge Date Admission Date: October 02, 2020 Subjective Patient seen and examined. She is chest pain-free. She states he is breathing relatively well. She did feel little tight in her chest overnight during the evening and received a nebulizer treatment which she states resolved her symptoms. She has an occasional dry cough but is not producing any phlegm. She is tolerating a diet and ate breakfast well without any nausea or vomiting. Review of Systems Review of Systems: All systems reviewed & are unremarkable except as noted in HPI & below Physical Exam Constitutional: WD/WN, vitals as above Neck: trachea midline, no thyromegaly Respiratory: normal respiratory effort, lungs clear to auscultation Cardiovascular: RRR, no murmur, no edema Gastrointestinal (Abdomen): normal bowel sounds, soft, nontender, no hepatosplenomegaly Musculoskeletal: Extremities: extremities normal to inspection Skin: no rashes, warm and dry Neurologic: Nonfocal exam Lymphatic: no cervical lymphadenopathy Results & Data Results & Data ([facility]) Vital Signs (Past 12 Hours) Vital Signs Temp Pulse Pulse Resp BP Pulse Ox 10/03/20 07:00 38.3 C H 78 22 94 10/03/20 06:47 38.2 C H 87 28 H 121/81 94 10/03/20 06:30 38.2 C H 78 27 H 94 10/03/20 06:00 38.2 C H 86 22 94 10/03/20 05:47 38.2 C H 81 24 124/74 92 10/03/20 05:30 38.2 C H 70 26 H 93 10/03/20 05:18 38.1 C H 78 27 H 126/77 93 10/03/20 05:00 38.1 C H 77 26 H 92 10/03/20 04:30 38.1 C H 77 25 H 92 10/03/20 04:17 38.2 C H 71 24 139/86 91 10/03/20 04:00 38.2 C H 70 22 92 10/03/20 03:47 38.1 C H 69 21 139/108 H 93 10/03/20 03:30 38.1 C H 71 22 93 10/03/20 03:17 38.1 C H 65 25 H 133/88 94 10/03/20 03:00 38.1 C H 69 23 94 10/03/20 02:47 38.1 C H 66 22 135/84 94 10/03/20 02:30 38.1 C H 65 22 93 10/03/20 02:17 38.1 C H 67 22 135/83 93 10/03/20 02:00 38.0 C H 70 21 92 10/03/20 01:47 38.0 C H 69 22 115/80 94 10/03/20 01:30 38.0 C H 70 22 92 10/03/20 01:17 38.0 C H 77 20 127/74 92 10/03/20 01:00 38.0 C H 78 25 H 92 10/03/20 00:53 38.0 C H 66 17 93 10/03/20 00:52 38.0 C H 76 28 H 117/71 93 10/03/20 00:30 38.0 C H 79 16 93 10/03/20 00:00 38.1 C H 62 21 91 10/02/20 23:30 38.0 C H 65 22 93 10/02/20 23:00 37.9 C H 63 19 93 10/02/20 22:30 37.7 C H 66 21 94 10/02/20 22:05 37.5 C 76 20 117/80 93 10/02/20 22:00 37.5 C 89 17 93 10/02/20 21:30 37.4 C 84 21 93 10/02/20 21:00 37.4 C 88 20 95 10/02/20 20:30 89 20 96 10/02/20 20:19 76 18 95 10/02/20 20:05 80 20 124/67 94 10/02/20 20:00 76 22 94 Laboratory Results 10/03/20 04:46 10/03/20 04:46 Procalcitonin was negative on presentation Diagnostic Findings Chest x-ray from yesterday was reviewed which reveals patchy bilateral pulmonary infiltrates. Coding Level of Care Code 25515 Subs Hosp Care [facility] [address] elevation (STEMI) myocardial infarction I21.3 Involved coronary artery: unspecified coronary artery CHF (congestive heart failure) I50.9 Heart failure chronicity: unspecified Heart failure type: unspecified Acute hypoxemic respiratory failure J96.01 Time Spent (min) 35 (1) ST elevation (STEMI) myocardial infarction Involved coronary artery: unspecified coronary artery Qualified Code(s): I21.3 - ST elevation (STEMI) myocardial infarction of unspecified site (2) CHF (congestive heart failure) Heart failure chronicity: unspecified Heart failure type: unspecified Qualified Code(s): I50.9 - Heart failure, unspecified
[2020-10-03] MEDS ORDERED: FUROSEMIDE 20 MG in SYRINGE 0 ML IV SCH (08:30)
[2020-10-03] MEDS: cefTRIAXone SODIUM 2,000 MG in DEXTROSE 5% 50 ML IV SCH (09:47)
[2020-10-03] MEDS: AZITHROMYCIN 250 MG TAB PO SCH (09:47)
[2020-10-03] MEDS: ENOXAPARIN INJ 40 MG/0.4 ML SYR SQ SCH (09:47)
[2020-10-03] MEDS ORDERED: LANTUS PER UNIT CHARGE SQ STA (10:11)
--- NOTE | 2020-10-03 10:54 | Hospitalist Progress Note ---
Date of Service October 03, 2020 Assessment & Plan (1) ST elevation (STEMI) myocardial infarction: 2 drug-eluting stents placed, continue dual antiplatelet therapy, statin, losartan. Follow-up with cardiology as instructed. (2) Multifocal pneumonia: Continue course of antibiotics. (3) Acute CHF (congestive heart failure): As a complication of STEMI. Patient was given small dose of Lasix and placed on BiPAP to recover in the ICU. X-ray revealed patchy pulmonary edema with trace pleural effusions which later was thought to be significant for multifocal pneumonia in the setting of fever and subsequent admission of coughing with shortness of breath for the prior 3 weeks that was progressive. (4) Diabetes mellitus: A1c is 7.3, indicating relative control but she has some room to improve. Inpatient sugars are at goal. Continue basal and bolus insulin. (5) Obesity: Lifestyle modifications encouraged. (6) DVT prophylaxis: Lovenox Full code Disposition-Home in a.m. DO Rajeev Olson Hospitalist Admission and Anticipated Discharge Date Admission Date: October 02, 2020 Subjective cc: STEMI developed fever overnight and persistent cough yesterday that was present just off BIPAP appears to have multifocal pneumonia-covid negative started Rocephin and doxycycline stable from transfer out of the ICU Review of Systems Review of Systems: All systems reviewed & are unremarkable except as noted in Subjective Physical Exam Physical Exam: CONSTITUTIONAL: obese, vitals as above, generally well- appearing EYES: normal conjunctivae, no scleral icterus ENT: external ear and nose normal, oropharynx clear, MMM RESPIRATORY: clear to auscultation bilaterally, no crackles, rales or wheezes, normal respiratory effort CARDIOVASCULAR: regular rate and rhythm, S1 and 2 heard without murmurs, gallops or rubs, no JVD, no peripheral edema GASTROINTESTINAL: soft, nontender, nondistended, no guarding MUSCULOSKELETAL: strength 5/5 throughout, head is normocephalic and atraumatic SKIN: warm and dry NEUROLOGIC: CN 2-12 grossly intact, normal cognition, normal speech PSYCHIATRIC: alert cooperative and oriented to person, place and time. Results & Data Results & Data ([facility]) Vital Signs (Past 12 Hours) Vital Signs Temp Pulse Resp BP Pulse Ox 10/03/20 09:56 36.9 C 10/03/20 09:55 81 27 H 118/71 88 L 10/03/20 09:30 82 32 H 91 10/03/20 09:00 87 30 H 92 10/03/20 08:39 93 H 28 H 148/110 H 92 10/03/20 08:38 102 H 25 H 10/03/20 08:00 38.6 C H 84 30 H 95 10/03/20 07:30 38.4 C H 91 H 21 93 10/03/20 07:17 38.3 C H 74 28 H 107/83 94 10/03/20 07:00 38.3 C H 78 22 94 10/03/20 06:47 38.2 C H 87 28 H 121/81 94 10/03/20 06:30 38.2 C H 78 27 H 94 10/03/20 06:00 38.2 C H 86 22 94 10/03/20 05:47 38.2 C H 81 24 124/74 92 10/03/20 05:30 38.2 C H 70 26 H 93 10/03/20 05:18 38.1 C H 78 27 H 126/77 93 10/03/20 05:00 38.1 C H 77 26 H 92 10/03/20 04:30 38.1 C H 77 25 H 92 10/03/20 04:17 38.2 C H 71 24 139/86 91 10/03/20 04:00 38.2 C H 70 22 92 10/03/20 03:47 38.1 C H 69 21 139/108 H 93 10/03/20 03:30 38.1 C H 71 22 93 10/03/20 03:17 38.1 C H 65 25 H 133/88 94 10/03/20 03:00 38.1 C H 69 23 94 10/03/20 02:47 38.1 C H 66 22 135/84 94 10/03/20 02:30 38.1 C H 65 22 93 10/03/20 02:17 38.1 C H 67 22 135/83 93 10/03/20 02:00 38.0 C H 70 21 92 10/03/20 01:47 38.0 C H 69 22 115/80 94 10/03/20 01:30 38.0 C H 70 22 92 10/03/20 01:17 38.0 C H 77 20 127/74 92 10/03/20 01:00 38.0 C H 78 25 H 92 10/03/20 00:53 38.0 C H 66 17 93 10/03/20 00:52 38.0 C H 76 28 H 117/71 93 10/03/20 00:30 38.0 C H 79 16 93 10/03/20 00:00 38.1 C H 62 21 91 10/02/20 23:30 38.0 C H 65 22 93 10/02/20 23:00 37.9 C H 63 19 93 Laboratory Results Short CBC 10/03/20 Range/Units 04:46 WBC 12.77 H (4.8-10.8) K/uL Hgb 14.0 (12.0-16.0) g/dL Hct 42.7 (37-47) % Plt Count 309 (130-400) K/uL BMP 10/03/20 04:46 Sodium 137 Potassium 3.8 Chloride 105 Carbon Dioxide 29 BUN 16 Creatinine 1.21 H Glucose 180 H Calcium 8.6 Cardiac Enzymes 10/02/20 10/02/20 10/03/20 Range/Units 10:13 16:46 04:46 Troponin I > 200.000 H* 200.000 H* 132.000 H* (0-0.045) ng/ml Urine 10/03/20 Range/Units Unknown Urine Color Yellow Urine Appearance Clear (Clear) Urine pH 5.5 (4.5-7.5) Ur Specific [place] 1.027 (1.000-1.030) Urine Protein Negative (Negative) Urine Glucose (UA) Negative (Negative) Medications Administered Current Inpatient Medications Acetaminophen (Acetaminophen 325 Mg Tab) 650 mg PO Q4H PRN PRN Reason: MILD Pain (Scale 1,2,3) Stop: 11/01/20 04:34 Last Admin: 10/03/20 08:02 Dose: 650 mg Documented by: Hydrocodone Bitart/Acetaminophen (Hydrocodone/Acetamophen 5/325mg Tab) 1 tab PO Q4H PRN PRN Reason: Pain, Severe Stop: 10/16/20 05:36 Hydrocodone Bitart/Acetaminophen (Hydrocodone/Acetamophen 5/325mg Tab) 1 tab PO DAILY PRN PRN Reason: severe pain Stop: 10/16/20 12:44 Albuterol (Albut/Ipratrop 3mg/0.5mg Neb 3 Ml Vial) 3 ml NEB Q4R PRN PRN Reason: Shortness Of Breath Or Wheezing Stop: 11/01/20 06:59 Last Admin: 10/02/20 20:19 Dose: 3 ml Documented by: Aspirin (Aspirin 81 Mg Ectab) 81 mg PO QAM [facility] Stop: 11/01/20 08:59 Last Admin: 10/03/20 07:56 Dose: 81 mg Documented by: Azithromycin (Azithromycin 250 Mg Tab) 250 mg PO QAM [facility] Stop: 10/07/20 09:01 Last Admin: 10/03/20 09:47 Dose: 250 mg Documented by: Bupropion HCl (Bupropion Xl 150 Mg Tabcr) 450 mg PO QAM [facility] Stop: 11/01/20 08:59 Last Admin: 10/03/20 07:58 Dose: 450 mg Documented by: Dextrose (Dextrose 50% 50 Ml Syringe) 25 - 50 ml IV UD PRN; Protocol PRN Reason: Hypoglycemia Protocol Stop: 11/01/20 05:36 Enoxaparin Sodium (Enoxaparin Inj 40 Mg/0.4 Ml Syr) [facility] Stop: 11/01/20 08:59 Last Admin: 10/03/20 09:47 Dose: 40 mg Documented by: Fluticasone/Vilanterol (Fluticasone/Vilanterol 100/25mcg 14 Puffs/Inhaler) 1 puffs INH DAILY [facility] Stop: 11/01/20 08:59 Last Admin: 10/03/20 08:00 Dose: 1 puffs Documented by: Gabapentin (Gabapentin 100 Mg Cap) 200 mg PO 1900 [facility] Stop: 11/01/20 18:59 Last Admin: 10/02/20 16:58 Dose: 200 mg Documented by: Glucagon (Glucagon For Inj 1 Mg Vial) 1 mg SQ UD PRN; Protocol PRN Reason: Hypoglycemia Protocol Stop: 11/01/20 05:36 Glucose (Glucose 10 Tabs/Tube) 4 - 8 tabs PO UD PRN; Protocol PRN Reason: Hypoglycemia Protocol Stop: 11/01/20 05:36 Glucose (Glucose 40% Gel 15 Gm Tube) 15 - 30 gm PO UD PRN; Protocol PRN Reason: Hypoglycemia Protocol Stop: 11/01/20 05:36 Promethazine HCl 12.5 mg/ (Sodium Chloride) 50.5 mls @ 202 mls/hr IV Q6H PRN PRN Reason: Nausea And Vomiting Stop: 11/01/20 05:36 Ceftriaxone Sodium 2,000 mg/ (Dextrose) 70 mls @ 140 mls/hr IV QAM [facility]; Protocol Stop: 10/07/20 09:29 Last Infusion: 10/03/20 10:42 Dose: Infused Documented by: Insulin Aspart (Insulin Aspart 100 Units/Ml 3 Ml Pen) 0 units SC ACHS [facility] Stop: 11/01/20 06:29 Last Admin: 10/03/20 07:54 Dose: 3 units Documented by: Lactobacillus Acidoph/Casei/Rhamnos (Advanced Probiotic 1250 Mg Capsule) 2 cap PO DAILY [facility] Stop: 11/01/20 08:59 Last Admin: 10/03/20 07:58 Dose: 2 cap Documented by: Levothyroxine Sodium (Levothyroxine Sodium 50 Mcg Tablet) 50 mcg PO SuWe@0630 [facility] Stop: 11/01/20 06:29 Last Admin: 10/02/20 06:36 Dose: 50 mcg Documented by: Levothyroxine Sodium (Levothyroxine Sodium 25 Mcg Tablet) 25 mcg PO MoTuThFrSa@0630 [facility] Stop: 11/02/20 06:29 Last Admin: 10/03/20 05:58 Dose: 25 mcg Documented by: Losartan Potassium (Losartan Potassium 50 Mg Tab) 100 mg PO DAILY [facility] Stop: 11/01/20 08:59 Last Admin: 10/03/20 08:01 Dose: 100 mg Documented by: Melatonin (Melatonin 3 Mg Tab) 6 mg PO HSZ PRN PRN Reason: Sleep Stop: 11/01/20 06:21 Metoprolol Tartrate (Metoprolol Tartrate 25 Mg Tab) 25 mg PO BID [facility] Stop: 11/01/20 08:59 Last Admin: 10/03/20 07:57 Dose: 25 mg Documented by: Miscellaneous (Icu Protocol For Hyperglycemia) 1 ea N/A PRN PRN; Protocol PRN Reason: Hyperglycemia Protocol Stop: 10/04/20 04:34 Miscellaneous (Flunisolide~Order Awaiting Action) 1 ea N/A QS [facility] Stop: 11/01/20 07:59 Last Admin: 10/03/20 08:00 Dose: Not Given Documented by: Miscellaneous (Carbohydrates For Hypoglycemia ) 15 - 30 gm PO UD PRN PRN Reason: Hypoglycemia Protocol Stop: 11/01/20 05:36 Montelukast Sodium (Montelukast Sodium 10 Mg Tablet) 10 mg PO DAILY [facility] Stop: 11/01/20 08:59 Last Admin: 10/03/20 07:59 Dose: 10 mg Documented by: Nitroglycerin (Nitroglycerin Sl 0.4 Mg/Tab Tab) 0.4 mg SL PRN PRN PRN Reason: Chest Pain Stop: 11/01/20 04:34 Ondansetron HCl (Ondansetron Inj 2 Mg/Ml 2 Ml Vial) 4 mg IV Q6H PRN PRN Reason: Nausea And Vomiting Stop: 11/01/20 04:34 Rosuvastatin Calcium (Rosuvastatin Calcium 20 Mg Tab) 40 mg PO QAM [facility] Stop: 11/01/20 08:59 Last Admin: 10/03/20 07:57 Dose: 40 mg Documented by: Ticagrelor (Ticagrelor 90 Mg Tab) 90 mg PO BID [facility] Stop: 11/01/20 16:59 Last Admin: 10/03/20 07:59 Dose: 90 mg Documented by: Trolamine Salicylate (Trolamine Salicylate 10% Crm 255 Appln/85 Gm Tube) 1 appln EXT BID PRN PRN Reason: arthritis pain Stop: 11/01/20 12:53 Vitamin B Complex (Vitamin B Complex Tab) 1 tab PO DAILY [facility] Stop: 11/01/20 08:59 Last Admin: 10/03/20 07:57 Dose: 1 tab Documented by: (1) ST elevation (STEMI) myocardial infarction Involved coronary artery: unspecified coronary artery Qualified Code(s): I21.3 - ST elevation (STEMI) myocardial infarction of unspecified site
--- NOTE | 2020-10-03 15:50 | Cardiology Progress Note ---
Date of Service October 03, 2020 Assessment & Plan (1) ST elevation (STEMI) myocardial infarction: Post PCI to proximal circumflex, OM 3 2. 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 Ischemic cardiomyopathyEF 35% 4. Acute systolic heart failure 5. ABEBA 6. Hypertension 7. Dyslipidemia 8. Fevers Patient remains chest pain-free, hemodynamically and electrically stable. Troponin peaked Minimal residual congestion on exam No apparent access site complications Continue DAPT with aspirin, ticagrelor Increase metoprolol to 50 mg twice dailyhome on Toprol-XL Continue current losartan Add spironolactone 25 mg daily. Agree with additional diuresis today. -- Follow-up I/Os, renal function. Likely home on low-dose maintenance p.o. Lasix -- Continue current statin -- OK with telemetry today. Possible discharge tomorrow from a cardiac standpoint. Admission and Anticipated Discharge Date Admission Date: October 02, 2020 Subjective Feeling well this morning. Had some brief chest tightness overnight which responded to albuterol. Breathing comfortably this morning. Low-grade fevers overnight. Blood cultures pending. Started on ceftriaxone azithromycin. -1100 yesterday. Given another 20 of IV Lasix this morning. Telemetry reviewedno events Physical Exam Physical Exam: General: Comfortable, no acute distress HEENT: Sclerae anicteric, mucous membranes moist Lungs: Lungs clear Cardiac: Regular rate and rhythm, no murmurs. Borderline JVD Abdomen: Soft, nontender, nondistended, positive bowel sounds. Extremities: Warm, well perfused, no edema. TR band removed. Small mild ecchymosis at access site. No hematoma Skin: No rashes or lesions. Neuro: Nonfocal Psych: Alert orient x3, normal affect and mood Results & Data ([facility]) Vital Signs (Past 12 Hours) Vital Signs Temp Pulse Resp BP Pulse Ox 10/03/20 11:40 71 30 H 132/74 94 10/03/20 11:39 67 21 10/03/20 10:39 75 19 88 L 10/03/20 10:00 79 17 92 10/03/20 09:56 98.4 F 81 23 89 L 10/03/20 09:55 81 27 H 118/71 88 L 10/03/20 09:30 82 32 H 91 10/03/20 09:00 87 30 H 92 10/03/20 08:39 93 H 28 H 148/110 H 92 10/03/20 08:38 102 H 25 H 10/03/20 08:00 101.5 F H 84 30 H 95 10/03/20 07:30 101.1 F H 91 H 21 93 10/03/20 07:17 100.9 F H 74 28 H 107/83 94 10/03/20 07:00 100.9 F H 78 22 94 10/03/20 06:47 100.8 F H 87 28 H 121/81 94 10/03/20 06:30 100.8 F H 78 27 H 94 10/03/20 06:00 100.8 F H 86 22 94 10/03/20 05:47 100.8 F H 81 24 124/74 92 10/03/20 05:30 100.8 F H 70 26 H 93 10/03/20 05:18 100.6 F H 78 27 H 126/77 93 10/03/20 05:00 100.6 F H 77 26 H 92 10/03/20 04:30 100.6 F H 77 25 H 92 10/03/20 04:17 100.8 F H 71 24 139/86 91 10/03/20 04:00 100.8 F H 70 22 92 10/03/20 03:47 100.6 F H 69 21 139/108 H 93 PG Care Time/CCT Total # of Minutes Spent Total Time Spent with Patient: Total time spent is greater than 50% in coordination of care (as documented) at patient's floor/unit and/or counseling patient: Coding Level of Care Code 32554 Subseq Hosp Care Lvl [address] elevation (STEMI) myocardial infarction I21.3 Involved coronary artery: unspecified coronary artery (1) ST elevation (STEMI) myocardial infarction Involved coronary artery: unspecified coronary artery Qualified Code(s): I21.3 - ST elevation (STEMI) myocardial infarction of unspecified site
[2020-10-03] MEDS: SPIRONOLACTONE 25 MG TAB PO SCH (17:15)
[2020-10-03] MEDS: GABAPENTIN 100 MG CAP PO SCH (18:49)
[2020-10-03] MEDS: INSULIN GLARGINE SOLOSTAR 100 UNITS/ML 3 ML PEN SC SCH (20:57)
[2020-10-03] MEDS: METOPROLOL TARTRATE 50 MG TAB PO SCH (20:57)
[2020-10-04] MEDS: LEVOTHYROXINE SODIUM 25 MCG TABLET PO SCH (06:35)
[2020-10-04 07:06] LABS: Basophils # (auto) 0.02 K/uL (0-0.2); Basophils % (auto) 0.2 %; Eosinophils # (auto) 0.13 K/uL (0-0.5); Eosinophils % (auto) 1.2 %; Hematocrit (blood only) 39.6 % (37-47); Hemoglobin 12.8 g/dL (12.0-16.0); Immature Granulocytes # (auto) 0.02 K/uL (0.00-0.02); Immature Granulocytes % (auto) 0.2 %; Lymphocytes # (auto) 2.92 K/uL (1.2-3.4); Lymphocytes % (auto) 27.6 %; Mean Corpuscular Hemoglobin 27.5 pg (25-34); Mean Corpuscular Hgb Conc 32.3 g/dL (32-36); Mean Platelet Volume 11.2 fL (7.4-10.4); Monocytes # (auto) 0.98 K/uL (0.11-0.59); Monocytes % (auto) 9.3 %; Neutrophils # (auto) 6.51 K/uL (1.4-6.5); Neutrophils % (auto) 61.5 %; Platelet Count 259 K/uL (130-400); RDW Coefficient of Variation 14.1 % (11.5-14.5); RDW Standard Deviation 43.7 fL (36.4-46.3); Red Blood Count 4.66 M/uL (4.2-5.4); White Blood Count 10.58 K/uL (4.8-10.8)
--- NOTE | 2020-10-04 07:15 | XRay Report ---
XR chest 1V portable HISTORY: 70 years-old Female PNA acute shortness of breath with pneumonia COMPARISON: Chest radiograph 09/30/2020 TECHNIQUE: Portable AP view of the chest FINDINGS: Cardiomediastinal and hilar silhouettes are within normal limits. Moderately improved aeration of the lungs with decreased bilateral pulmonary opacities. Mild interstitial coarsening. Mild right hemidia phragmatic elevation with trace pleural effusions. No pneumothorax. Degenerative changes of the shoul ders and spine. IMPRESSION: 1. Moderately improved aeration of the lungs with decreased bilateral pulmonary opacities. 2. Trace pleural effusions. ACT 112: Negative or not required by law. The above report was generated using voice recognition software. It may contain grammatical, syntax o r spelling errors. Electronically signed by: Alberto Garcia M.D. 10/04/2020 7:13 AM
[2020-10-04 07:31] LABS: BUN Creatinine Ratio 17.5 (10-20); Calcium 8.9 mg/dl (8.5-10.1); Creatinine Clr Calc Pharmacy 57.8 ml/min; Est GFR (African American) 55.1; Est GFR (Non-African American) 47.5; Potassium 3.7 mmol/L (3.5-5.1)
[2020-10-04] MEDS: INSULIN ASPART 100 UNITS/ML 3 ML PEN SC SCH ×4 (08:16→20:36)
[2020-10-04] MEDS: INSULIN GLARGINE SOLOSTAR 100 UNITS/ML 3 ML PEN SC SCH ×2 (08:18→20:36)
[2020-10-04] MEDS: METOPROLOL TARTRATE 50 MG TAB PO SCH ×3 (08:23→20:35)
[2020-10-04] MEDS: TICAGRELOR 90 MG TAB PO SCH ×2 (08:23→21:14)
[2020-10-04] MEDS: MONTELUKAST SODIUM 10 MG TABLET PO SCH (08:24)
[2020-10-04] MEDS: ASPIRIN 81 MG ECTAB PO SCH (08:24)
[2020-10-04] MEDS: AZITHROMYCIN 250 MG TAB PO SCH (08:24)
[2020-10-04] MEDS: buPROPion XL 150 MG TABCR PO SCH (08:24)
[2020-10-04] MEDS: LOSARTAN POTASSIUM 50 MG TAB PO SCH (08:25)
[2020-10-04] MEDS: ADVANCED PROBIOTIC 1250 MG CAPSULE PO SCH (08:25)
[2020-10-04] MEDS: SPIRONOLACTONE 25 MG TAB PO SCH (08:26)
[2020-10-04] MEDS: VITAMIN B COMPLEX TAB PO SCH (08:26)
[2020-10-04] MEDS: ROSUVASTATIN CALCIUM 20 MG TAB PO SCH (08:26)
[2020-10-04] MEDS: FLUTICASONE/VILANTEROL 100/25MCG 14 PUFFS/INHALER INH SCH (08:27)
[2020-10-04] MEDS: ENOXAPARIN INJ 40 MG/0.4 ML SYR SQ SCH (08:27)
[2020-10-04] MEDS: cefTRIAXone SODIUM 2,000 MG in DEXTROSE 5% 50 ML IV SCH (08:33)
--- NOTE | 2020-10-04 10:56 | Cardiology Progress Note ---
Date of Service October 04, 2020 Assessment & Plan (1) ST elevation (STEMI) myocardial infarction: Post PCI to proximal circumflex, OM 3 2. 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 Ischemic cardiomyopathyEF 35% 4. Acute systolic heart failure 5. ABEBA 6. Hypertension 7. Dyslipidemia 8. Fevers Patient chest pain-free, electrically stable. No significant congestion on exam. Renal function stable. No additional fevers, white count down, blood cultures no growth to date From a cardiac standpoint okay with discharge today. Cardiac meds on discharge: DAPT with aspirin, ticagrelor Toprol-XL 100 mg daily Losartan 100 mg daily Spironolactone 25 mg daily Rosuvastatin 40 mg Lasix 20 mg dailylikely transition to PRN on follow-up Follow-up with me in 1 week. Admission and Anticipated Discharge Date Admission Date: October 02, 2020 Subjective No recurrent chest pain.Feeling well this morning. Breathing comfortably. No additional fevers. No other new concerns. Telemetry reviewedno events Review of Systems Review of Systems: All systems reviewed & are unremarkable except as noted in HPI & below Physical Exam Physical Exam: General: Comfortable, no acute distress HEENT: Sclerae anicteric, mucous membranes moist Lungs: Lungs clear Cardiac: Regular rate and rhythm, no murmurs. No JVD Abdomen: Soft, nontender, nondistended, positive bowel sounds. Extremities: Warm, well perfused, no edema. Small mild ecchymosis at access site. No hematoma Skin: No rashes or lesions. Neuro: Nonfocal Psych: Alert orient x3, normal affect and mood Results & Data ([facility]) Vital Signs (Past 12 Hours) Vital Signs Temp Pulse Pulse Resp BP Pulse Ox 10/04/20 08:00 97.9 F 61 18 101/62 97 10/04/20 07:00 58 L 10/04/20 04:34 98.1 F 66 19 107/69 94 10/04/20 00:00 99.0 F 58 L 18 97/62 L 95 10/03/20 23:34 87 PG Care Time/CCT Total # of Minutes Spent Total Time Spent with Patient: Total time spent is greater than 50% in coordination of care (as documented) at patient's floor/unit and/or counseling patient: Coding Level of Care Code 85234 Subseq Hosp Care Lvl [address] elevation (STEMI) myocardial infarction I21.3 Involved coronary artery: unspecified coronary artery (1) ST elevation (STEMI) myocardial infarction Involved coronary artery: unspecified coronary artery Qualified Code(s): I21.3 - ST elevation (STEMI) myocardial infarction of unspecified site
--- NOTE | 2020-10-04 15:41 | Hospitalist Progress Note ---
Date of Service October 04, 2020 Assessment & Plan (1) ST elevation (STEMI) myocardial infarction: 2 drug-eluting stents placed, continue dual antiplatelet therapy, statin, losartan. Follow-up with cardiology as instructed. (2) Multifocal pneumonia: Continue course of antibiotics. (3) Acute CHF (congestive heart failure): As a complication of STEMI. Patient was given small dose of Lasix and placed on BiPAP to recover in the ICU. X-ray revealed patchy pulmonary edema with trace pleural effusions which later was thought to be significant for multifocal pneumonia in the setting of fever and subsequent admission of coughing with shortness of breath for the prior 3 weeks that was progressive. (4) Diabetes mellitus: A1c is 7.3, indicating relative control but she has some room to improve. Inpatient sugars are at goal. Continue basal and bolus insulin. (5) Obesity: Lifestyle modifications encouraged. (6) DVT prophylaxis: Lovenox Full code Disposition-Home in a.m. DO Rajeev Olson Hospitalist Admission and Anticipated Discharge Date Admission Date: October 02, 2020 Subjective CC: STEMI status post PCI x2 drug-eluting stents, multifocal pneumonia Feels well today Afebrile Tolerating p.o. pain Not requiring oxygen. Review of Systems Review of Systems: All systems reviewed & are unremarkable except as noted in Subjective Physical Exam Physical Exam: CONSTITUTIONAL: obese, vitals as above, generally well- appearing EYES: normal conjunctivae, no scleral icterus ENT: external ear and nose normal, oropharynx clear, MMM RESPIRATORY: clear to auscultation bilaterally, no crackles, rales or wheezes, normal respiratory effort CARDIOVASCULAR: regular rate and rhythm, S1 and 2 heard without murmurs, gallops or rubs, no JVD, no peripheral edema GASTROINTESTINAL: soft, nontender, nondistended, no guarding MUSCULOSKELETAL: strength 5/5 throughout, head is normocephalic and atraumatic SKIN: warm and dry NEUROLOGIC: CN 2-12 grossly intact, normal cognition, normal speech PSYCHIATRIC: alert cooperative and oriented to person, place and time. Results & Data Results & Data ([facility]) Vital Signs (Past 12 Hours) Vital Signs Temp Pulse Pulse Resp BP Pulse Ox 10/04/20 11:59 36.9 C 59 L 18 97/64 L 92 10/04/20 11:44 37.5 C 53 L 18 98/58 L 96 10/04/20 08:00 36.6 C 61 18 101/62 97 10/04/20 07:00 58 L 10/04/20 04:34 36.7 C 66 19 107/69 94 Laboratory Results Short CBC 10/04/20 Range/Units 06:31 WBC 10.58 (4.8-10.8) K/uL Hgb 12.8 (12.0-16.0) g/dL Hct 39.6 (37-47) % Plt Count 259 (130-400) K/uL BMP 10/04/20 06:31 Sodium 139 Potassium 3.7 Chloride 106 Carbon Dioxide 27 BUN 21 H Creatinine 1.17 Glucose 157 H Calcium 8.9 Medications Administered Current Inpatient Medications Acetaminophen (Acetaminophen 325 Mg Tab) 650 mg PO Q4H PRN PRN Reason: MILD Pain (Scale 1,2,3) Stop: 11/01/20 04:34 Last Admin: 10/03/20 08:02 Dose: 650 mg Documented by: Hydrocodone Bitart/Acetaminophen (Hydrocodone/Acetamophen 5/325mg Tab) 1 tab PO DAILY PRN PRN Reason: severe pain Stop: 10/16/20 12:44 Albuterol (Albut/Ipratrop 3mg/0.5mg Neb 3 Ml Vial) 3 ml NEB Q4R PRN PRN Reason: Shortness Of Breath Or Wheezing Stop: 11/01/20 06:59 Last Admin: 10/02/20 20:19 Dose: 3 ml Documented by: Aspirin (Aspirin 81 Mg Ectab) 81 mg PO [facility] Stop: 11/01/20 08:59 Last Admin: 10/04/20 08:24 Dose: 81 mg Documented by: Azithromycin (Azithromycin 250 Mg Tab) 250 mg PO [facility] Stop: 10/07/20 09:01 Last Admin: 10/04/20 08:24 Dose: 250 mg Documented by: Bupropion HCl (Bupropion Xl 150 Mg Tabcr) 450 mg PO [facility] Stop: 11/01/20 08:59 Last Admin: 10/04/20 08:24 Dose: 450 mg Documented by: Dextrose (Dextrose 50% 50 Ml Syringe) 25 - 50 ml IV UD PRN; Protocol PRN Reason: Hypoglycemia Protocol Stop: 11/01/20 05:36 Enoxaparin Sodium (Enoxaparin Inj 40 Mg/0.4 Ml Syr) 40 mg SQ QAM [facility] Stop: 11/01/20 08:59 Last Admin: 10/04/20 08:27 Dose: 40 mg Documented by: Fluticasone/Vilanterol (Fluticasone/Vilanterol 100/25mcg 14 Puffs/Inhaler) 1 puffs INH DAILY [facility] Stop: 11/01/20 08:59 Last Admin: 10/04/20 08:27 Dose: 1 puffs Documented by: Gabapentin (Gabapentin 100 Mg Cap) 200 mg PO 1900 [facility] Stop: 11/01/20 18:59 Last Admin: 10/03/20 18:49 Dose: 200 mg Documented by: Glucagon (Glucagon For Inj 1 Mg Vial) 1 mg SQ UD PRN; Protocol PRN Reason: Hypoglycemia Protocol Stop: 11/01/20 05:36 Glucose (Glucose 10 Tabs/Tube) 4 - 8 tabs PO UD PRN; Protocol PRN Reason: Hypoglycemia Protocol Stop: 11/01/20 05:36 Glucose (Glucose 40% Gel 15 Gm Tube) 15 - 30 gm PO UD PRN; Protocol PRN Reason: Hypoglycemia Protocol Stop: 11/01/20 05:36 Promethazine HCl 12.5 mg/ (Sodium Chloride) 50.5 mls @ 202 mls/hr IV Q6H PRN PRN Reason: Nausea And Vomiting Stop: 11/01/20 05:36 Ceftriaxone Sodium 2,000 mg/ (Dextrose) 70 mls @ 140 mls/hr IV QAM [facility]; Protocol Stop: 10/07/20 09:29 Last Infusion: 10/04/20 09:12 Dose: Infused Documented by: Insulin Aspart (Insulin Aspart 100 Units/Ml 3 Ml Pen) 0 units SC ACHS [facility] Stop: 11/02/20 15:11 Last Admin: 10/04/20 12:04 Dose: 4 units Documented by: Insulin Glargine (Insulin Glargine Solostar 100 Units/Ml 3 Ml Pen) 15 units SC BID [facility] Stop: 11/02/20 20:59 Last Admin: 10/04/20 08:18 Dose: 15 units Documented by: Lactobacillus Acidoph/Casei/Rhamnos (Advanced Probiotic 1250 Mg Capsule) 2 cap PO DAILY [facility] Stop: 11/01/20 08:59 Last Admin: 10/04/20 08:25 Dose: 2 cap Documented by: Levothyroxine Sodium (Levothyroxine Sodium 50 Mcg Tablet) 50 mcg PO SuWe@0630 [facility] Stop: 11/01/20 06:29 Last Admin: 10/02/20 06:36 Dose: 50 mcg Documented by: Levothyroxine Sodium (Levothyroxine Sodium 25 Mcg Tablet) 25 mcg PO MoTuThFrSa@0630 [facility] Stop: 11/02/20 06:29 Last Admin: 10/04/20 06:35 Dose: 25 mcg Documented by: Losartan Potassium (Losartan Potassium 50 Mg Tab) 100 mg PO DAILY [facility] Stop: 11/01/20 08:59 Last Admin: 10/04/20 08:25 Dose: 100 mg Documented by: Melatonin (Melatonin 3 Mg Tab) 6 mg PO HSZ PRN PRN Reason: Sleep Stop: 11/01/20 06:21 Metoprolol Tartrate (Metoprolol Tartrate 50 Mg Tab) 50 mg PO BID [facility] Stop: 11/02/20 20:59 Last Admin: 10/04/20 08:23 Dose: 50 mg Documented by: Miscellaneous (Flunisolide~Order Awaiting Action) 1 ea N/A QS [facility] Stop: 11/01/20 07:59 Last Admin: 10/04/20 08:27 Dose: Not Given Documented by: Miscellaneous (Carbohydrates For Hypoglycemia ) 15 - 30 gm PO UD PRN PRN Reason: Hypoglycemia Protocol Stop: 11/01/20 05:36 Montelukast Sodium (Montelukast Sodium 10 Mg Tablet) 10 mg PO DAILY [facility] Stop: 11/01/20 08:59 Last Admin: 10/04/20 08:24 Dose: 10 mg Documented by: Nitroglycerin (Nitroglycerin Sl 0.4 Mg/Tab Tab) 0.4 mg SL PRN PRN PRN Reason: Chest Pain Stop: 11/01/20 04:34 Ondansetron HCl (Ondansetron Inj 2 Mg/Ml 2 Ml Vial) 4 mg IV Q6H PRN PRN Reason: Nausea And Vomiting Stop: 11/01/20 04:34 Last Admin: 10/03/20 11:44 Dose: 4 mg Documented by: Rosuvastatin Calcium (Rosuvastatin Calcium 20 Mg Tab) 40 mg PO QAM [facility] Stop: 11/01/20 08:59 Last Admin: 10/04/20 08:26 Dose: 40 mg Documented by: Spironolactone (Spironolactone 25 Mg Tab) 25 mg PO QAM [facility] Stop: 11/02/20 16:14 Last Admin: 10/04/20 08:26 Dose: 25 mg Documented by: Ticagrelor (Ticagrelor 90 Mg Tab) 90 mg PO BID [facility] Stop: 11/01/20 16:59 Last Admin: 10/04/20 08:23 Dose: 90 mg Documented by: Trolamine Salicylate (Trolamine Salicylate 10% Crm 255 Appln/85 Gm Tube) 1 appln EXT BID PRN PRN Reason: arthritis pain Stop: 11/01/20 12:53 Vitamin B Complex (Vitamin B Complex Tab) 1 tab PO DAILY [facility] Stop: 11/01/20 08:59 Last Admin: 10/04/20 08:26 Dose: 1 tab Documented by: (1) ST elevation (STEMI) myocardial infarction Involved coronary artery: unspecified coronary artery Qualified Code(s): I21.3 - ST elevation (STEMI) myocardial infarction of unspecified site
[2020-10-04] MEDS: GABAPENTIN 100 MG CAP PO SCH (19:14)
[2020-10-04] MEDS: CEFDINIR 300 MG CAP PO SCH (21:14)
[2020-10-05] MEDS: LEVOTHYROXINE SODIUM 50 MCG TABLET PO SCH (06:00)
[2020-10-05 06:46] LABS: BUN Creatinine Ratio 17.6 (10-20); Calcium 8.9 mg/dl (8.5-10.1); Creatinine Clr Calc Pharmacy 54.1 ml/min; Est GFR (African American) 50.8; Est GFR (Non-African American) 43.9; Potassium 3.6 mmol/L (3.5-5.1)
[2020-10-05] MEDS: FLUTICASONE/VILANTEROL 100/25MCG 14 PUFFS/INHALER INH SCH (08:04)
[2020-10-05] MEDS: SPIRONOLACTONE 25 MG TAB PO SCH (08:04)
[2020-10-05] MEDS: LOSARTAN POTASSIUM 50 MG TAB PO SCH (08:05)
[2020-10-05] MEDS: TICAGRELOR 90 MG TAB PO SCH (08:05)
[2020-10-05] MEDS: buPROPion XL 150 MG TABCR PO SCH (08:06)
[2020-10-05] MEDS: ROSUVASTATIN CALCIUM 20 MG TAB PO SCH (08:06)
[2020-10-05] MEDS: VITAMIN B COMPLEX TAB PO SCH (08:06)
[2020-10-05] MEDS: MONTELUKAST SODIUM 10 MG TABLET PO SCH (08:07)
[2020-10-05] MEDS: ADVANCED PROBIOTIC 1250 MG CAPSULE PO SCH (08:07)
[2020-10-05] MEDS: CEFDINIR 300 MG CAP PO SCH (08:07)
[2020-10-05] MEDS: ENOXAPARIN INJ 40 MG/0.4 ML SYR SQ SCH (08:08)
[2020-10-05] MEDS: METOPROLOL TARTRATE 50 MG TAB PO SCH (08:08)
[2020-10-05] MEDS: ASPIRIN 81 MG ECTAB PO SCH (08:08)
[2020-10-05] MEDS: AZITHROMYCIN 250 MG TAB PO SCH (08:10)
[2020-10-05] MEDS: INSULIN GLARGINE SOLOSTAR 100 UNITS/ML 3 ML PEN SC SCH (09:00)
[2020-10-05] MEDS: INSULIN ASPART 100 UNITS/ML 3 ML PEN SC SCH ×3 (09:00→17:46)
[2020-10-05 10:37] LABS: Basophils # (auto) 0.03 K/uL (0-0.2); Basophils % (auto) 0.3 %; Eosinophils # (auto) 0.18 K/uL (0-0.5); Eosinophils % (auto) 2.1 %; Hematocrit (blood only) 39.5 % (37-47); Hemoglobin 12.9 g/dL (12.0-16.0); Immature Granulocytes # (auto) 0.02 K/uL (0.00-0.02); Immature Granulocytes % (auto) 0.2 %; Lymphocytes # (auto) 2.82 K/uL (1.2-3.4); Lymphocytes % (auto) 32.7 %; Mean Corpuscular Hgb Conc 32.7 g/dL (32-36); Mean Corpuscular Volume 85.7 fL (80-100); Mean Platelet Volume 11.5 fL (7.4-10.4); Monocytes # (auto) 0.75 K/uL (0.11-0.59); Monocytes % (auto) 8.7 %; Neutrophils # (auto) 4.83 K/uL (1.4-6.5); Platelet Count 273 K/uL (130-400); RDW Coefficient of Variation 14.1 % (11.5-14.5); RDW Standard Deviation 44.3 fL (36.4-46.3); Red Blood Count 4.61 M/uL (4.2-5.4); White Blood Count 8.63 K/uL (4.8-10.8)
--- NOTE | 2020-10-05 11:44 | Hospitalist Progress Note ---
Date of Service October 05, 2020 Assessment & Plan (1) ST elevation (STEMI) myocardial infarction: Status post cardiac catheterization- 2 drug-eluting stents placed: Post PCI to proximal circumflex, OM 3 -Post PCI with [facility]INGS to proximal RCA Appreciate cardiology input and recommendation Continue dual antiplatelet therapy, statin, losartan. Follow-up with cardiology as instructed. (2) Multifocal pneumonia: Continue course of antibiotics. X-ray findings most likely due to CHF and has been improving We will continue azithromycin for a total of 5 days (3) Acute CHF (congestive heart failure): As a complication of STEMI. Patient was given small dose of Lasix and placed on BiPAP to recover in the ICU. X-ray revealed patchy pulmonary edema with trace pleural effusions which later was thought to be significant for multifocal pneumonia in the setting of fever and subsequent admission of coughing with shortness of breath for the prior 3 weeks that was progressive. Repeat chest x-ray has been improving (4) Diabetes mellitus: A1c is 7.3, indicating relative control but she has some room to improve. Inpatient sugars are at goal. Continue basal and bolus insulin. Has been getting sweating immediately following insulin administration Blood sugar remains stable (5) Obesity: Lifestyle modifications encouraged. (6) DVT prophylaxis: Lovenox Full code Disposition-Home in a.m. Will be discharged this afternoon Admission and Anticipated Discharge Date Admission Date: October 02, 2020 Subjective 10/05/2020 The patient was seen and examined in medical floor She complains today of some sweating immediately after getting insulin injection Denies any other symptoms Denies any chest pain, palpitation, shortness of breath No fever, chills, cough or phlegm Review of Systems Review of Systems: All systems reviewed and are unremarkable except as noted below Respiratory: no cough, no chest congestion and no dyspnea Cardiovascular: no chest pain Physical Exam Physical Exam: Sitting on a chair without any acute distress Constitutional: well developed, well nourished and + obese Eyes: PERRL, conjunctivae normal, anicteric sclerae ENMT: external ear and nose normal, oropharynx normal Neck: trachea midline, no thyromegaly Respiratory: normal respiratory effort, lungs clear to auscultation Cardiovascular: Rate/Rhythm: regular rate and regular rhythm Heart Sounds: no murmur Gastrointestinal (Abdomen): Inspection/Auscultation: + abdomen distended and normal bowel sounds Percussion/Palpation: abdomen soft; abdomen nontender Musculoskeletal: No acute arthritis in any joint Neurologic: Alert, awake and oriented x3 Psychiatric: A+Ox3, euthymic affect Lymphatic: no cervical or axillary lymphadenopathy Results & Data Results & Data ([facility]) Vital Signs (Past 12 Hours) Vital Signs Temp Pulse Resp BP Pulse Ox 10/05/20 07:26 36.4 C L 65 20 109/70 96 Laboratory Results Short CBC 10/05/20 Range/Units 05:57 WBC 8.63 (4.8-10.8) K/uL Hgb 12.9 (12.0-16.0) g/dL Hct 39.5 (37-47) % Plt Count 273 (130-400) K/uL BMP 10/05/20 05:57 Sodium 141 Potassium 3.6 Chloride 110 H Carbon Dioxide 27 BUN 22 H Creatinine 1.25 H Glucose 116 H Calcium 8.9 Medications Administered Current Inpatient Medications Acetaminophen (Acetaminophen 325 Mg Tab) 650 mg PO Q4H PRN PRN Reason: MILD Pain (Scale 1,2,3) Stop: 11/01/20 04:34 Last Admin: 10/03/20 08:02 Dose: 650 mg Documented by: Hydrocodone Bitart/Acetaminophen (Hydrocodone/Acetamophen 5/325mg Tab) 1 tab PO DAILY PRN PRN Reason: severe pain Stop: 10/16/20 12:44 Albuterol (Albut/Ipratrop 3mg/0.5mg Neb 3 Ml Vial) 3 ml NEB Q4R PRN PRN Reason: Shortness Of Breath Or Wheezing Stop: 11/01/20 06:59 Last Admin: 10/02/20 20:19 Dose: 3 ml Documented by: Aspirin (Aspirin 81 Mg Ectab) 81 mg PO [facility] Stop: 11/01/20 08:59 Last Admin: 10/05/20 08:08 Dose: 81 mg Documented by: Azithromycin (Azithromycin 250 Mg Tab) 250 mg PO [facility] Stop: 10/07/20 09:01 Last Admin: 10/05/20 08:10 Dose: 250 mg Documented by: Bupropion HCl (Bupropion Xl 150 Mg Tabcr) 450 mg PO [facility] Stop: 11/01/20 08:59 Last Admin: 10/05/20 08:06 Dose: 450 mg Documented by: Cefdinir (Cefdinir 300 Mg Cap) 300 mg PO BID [facility] Stop: 10/11/20 20:59 Last Admin: 10/05/20 08:07 Dose: 300 mg Documented by: Dextrose (Dextrose 50% 50 Ml Syringe) 25 - 50 ml IV UD PRN; Protocol PRN Reason: Hypoglycemia Protocol Stop: 11/01/20 05:36 Enoxaparin Sodium (Enoxaparin Inj 40 Mg/0.4 Ml Syr) 40 mg SQ QAM [facility] Stop: 11/01/20 08:59 Last Admin: 10/05/20 08:08 Dose: 40 mg Documented by: Fluticasone/Vilanterol (Fluticasone/Vilanterol 100/25mcg 14 Puffs/Inhaler) 1 puffs INH DAILY [facility] Stop: 11/01/20 08:59 Last Admin: 10/05/20 08:04 Dose: 1 puffs Documented by: Gabapentin (Gabapentin 100 Mg Cap) 200 mg PO 1900 [facility] Stop: 11/01/20 18:59 Last Admin: 10/04/20 19:14 Dose: 200 mg Documented by: Glucagon (Glucagon For Inj 1 Mg Vial) 1 mg SQ UD PRN; Protocol PRN Reason: Hypoglycemia Protocol Stop: 11/01/20 05:36 Glucose (Glucose 10 Tabs/Tube) 4 - 8 tabs PO UD PRN; Protocol PRN Reason: Hypoglycemia Protocol Stop: 11/01/20 05:36 Glucose (Glucose 40% Gel 15 Gm Tube) 15 - 30 gm PO UD PRN; Protocol PRN Reason: Hypoglycemia Protocol Stop: 11/01/20 05:36 Promethazine HCl 12.5 mg/ (Sodium Chloride) 50.5 mls @ 202 mls/hr IV Q6H PRN PRN Reason: Nausea And Vomiting Stop: 11/01/20 05:36 Insulin Aspart (Insulin Aspart 100 Units/Ml 3 Ml Pen) 0 units SC ACHS [facility] Stop: 11/02/20 15:11 Last Admin: 10/05/20 09:00 Dose: 6 units Documented by: Insulin Glargine (Insulin Glargine Solostar 100 Units/Ml 3 Ml Pen) 15 units SC BID [facility] Stop: 11/02/20 20:59 Last Admin: 10/05/20 09:00 Dose: 15 units Documented by: Lactobacillus Acidoph/Casei/Rhamnos (Advanced Probiotic 1250 Mg Capsule) 2 cap PO DAILY [facility] Stop: 11/01/20 08:59 Last Admin: 10/05/20 08:07 Dose: 2 cap Documented by: Levothyroxine Sodium (Levothyroxine Sodium 50 Mcg Tablet) 50 mcg PO SuWe@0630 [facility] Stop: 11/01/20 06:29 Last Admin: 10/05/20 06:00 Dose: 50 mcg Documented by: Levothyroxine Sodium (Levothyroxine Sodium 25 Mcg Tablet) 25 mcg PO MoTuThFrSa@0630 [facility] Stop: 11/02/20 06:29 Last Admin: 10/04/20 06:35 Dose: 25 mcg Documented by: Losartan Potassium (Losartan Potassium 50 Mg Tab) 100 mg PO DAILY [facility] Stop: 11/01/20 08:59 Last Admin: 10/05/20 08:05 Dose: 100 mg Documented by: Melatonin (Melatonin 3 Mg Tab) 6 mg PO HSZ PRN PRN Reason: Sleep Stop: 11/01/20 06:21 Metoprolol Tartrate (Metoprolol Tartrate 50 Mg Tab) 50 mg PO BID [facility] Stop: 11/02/20 20:59 Last Admin: 10/05/20 08:08 Dose: 50 mg Documented by: Miscellaneous (Flunisolide~Order Awaiting Action) 1 ea N/A QS [facility] Stop: 11/01/20 07:59 Last Admin: 10/05/20 08:09 Dose: Not Given Documented by: Miscellaneous (Carbohydrates For Hypoglycemia ) 15 - 30 gm PO UD PRN PRN Reason: Hypoglycemia Protocol Stop: 11/01/20 05:36 Montelukast Sodium (Montelukast Sodium 10 Mg Tablet) 10 mg PO DAILY [facility] Stop: 11/01/20 08:59 Last Admin: 10/05/20 08:07 Dose: 10 mg Documented by: Nitroglycerin (Nitroglycerin Sl 0.4 Mg/Tab Tab) 0.4 mg SL PRN PRN PRN Reason: Chest Pain Stop: 11/01/20 04:34 Ondansetron HCl (Ondansetron Inj 2 Mg/Ml 2 Ml Vial) 4 mg IV Q6H PRN PRN Reason: Nausea And Vomiting Stop: 11/01/20 04:34 Last Admin: 10/03/20 11:44 Dose: 4 mg Documented by: Rosuvastatin Calcium (Rosuvastatin Calcium 20 Mg Tab) 40 mg PO QAM [facility] Stop: 11/01/20 08:59 Last Admin: 10/05/20 08:06 Dose: 40 mg Documented by: Spironolactone (Spironolactone 25 Mg Tab) 25 mg PO QAM [facility] Stop: 11/02/20 16:14 Last Admin: 10/05/20 08:04 Dose: 25 mg Documented by: Ticagrelor (Ticagrelor 90 Mg Tab) 90 mg PO BID [facility] Stop: 11/01/20 16:59 Last Admin: 10/05/20 08:05 Dose: 90 mg Documented by: Trolamine Salicylate (Trolamine Salicylate 10% Crm 255 Appln/85 Gm Tube) 1 appln EXT BID PRN PRN Reason: arthritis pain Stop: 11/01/20 12:53 Vitamin B Complex (Vitamin B Complex Tab) 1 tab PO DAILY [facility] Stop: 11/01/20 08:59 Last Admin: 10/05/20 08:06 Dose: 1 tab Documented by: (1) ST elevation (STEMI) myocardial infarction Involved coronary artery: unspecified coronary artery Qualified Code(s): I21.3 - ST elevation (STEMI) myocardial infarction of unspecified site
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
== END 2020-10-05 18:08 | disposition home health service (06) | DRG 246 ==
LOC: ED 02:57 → CC 03:14 → 1E 04:45 → SUATTDRO 04:45 → 2S 10-03 10:40 → 3W 10-04 16:24